=== PATIENT | male | born 1975 | race Caucasian/White ===

== ENCOUNTER 2016-09-28 13:30 | Emergency (ER) ==
[2016-09-28 13:31] VITALS: BMI 26.5
[2016-09-28 13:46] VITALS: BP 142/103; TEMP 97.8
[2016-09-28] MEDS ORDERED: NORCO 10-325 PO STA (14:24)
[2016-09-28 14:50] LABS: COCAIN SCREEN,URINE NEGATIVE (NEGATIVE)
--- NOTE | 2016-09-28 15:07 | ED.PDOC ---
General ED Provider: Dr. ALFREDO CASTILLO Chief Complaint: Shoulder Pain/Injury Stated Complaint: right shoulder pain Time Seen by Physician: 13:33 Mode of Arrival: Walk-In Information Source: Patient Exam Limitations: No limitations Primary Care Provider: CELINA SERNA Nursing and Triage Documentation Reviewed and Agree: Yes Musculoskeletal Complaint Exam - Shoulder Pain Complaint/Exam Mechanism of Injury: Reports: Trauma (shoveling for the city sudden pain with shoulder movements only) Onset/Duration: 2 hrs ago Timing: Constant Initial Severity: Moderate Current Severity: Mild Location: Reports: Discrete (right shoulder ) Character: Reports: Aching, Spasmodic Alleviating: Reports: Rest Aggravating: Reports: Movement, Lifting, Flexion, Extension, Internal rotation, External rotation, Abduction Associated Signs and Symptoms: Denies: Swelling, Redness, Bruising, Fever, Weakness, Numbness, Tingling Non-Orthopedic Risk Factors: Reports: None DVT Risk Factors: Reports: None Septic Arthritis Risk Factors: Reports: None Related Surgical History: Reports: None Tenderness: Present: AC joint, Proximal humerus Limited Range of Motion: Present: Abduction, Adduction, Flexion, Extension, Internal rotation, External rotation, Rotator cuff muscles, Rotator cuff insertion Differential Diagnoses: Sprain, Strain Review of Systems - Review Of Systems Constitutional: Reports: No symptoms Eyes: Reports: No symptoms Ears, Nose, Mouth, Throat: Reports: No symptoms Respiratory: Reports: No symptoms Cardiac: Reports: No symptoms GI: Reports: No symptoms : Reports: No symptoms Musculoskeletal: Reports: Joint pain (right shoulder ) Skin: Reports: No symptoms Neurological: Reports: No symptoms Endocrine: Reports: No symptoms Hematologic/Lymphatic: Reports: No symptoms All Other Systems: Reviewed and Negative Past Medical History - Past Medical History Endocrine: Reports: None Cardiovascular: Reports: None Respiratory: Reports: None Hematological: Reports: None Gastrointestinal: Reports: None Genitourinary: Reports: Other Neuro/Psych: Reports: Other Musculoskeletal: Reports: None Cancer: Reports: None - Surgical History General Surgical History: Reports: Orthopedic ( RIGHT KNEE, LEFT FOOT ) - Family History Family History: Reports: Unknown - Social History Smoking Status: Never smoker 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) Alcohol Screening: None - Immunizations Tetanus Shot up to Date: Yes (3-4 YEARS) Physical Exam - Physical Exam Appearance: Well-appearing, No pain distress, Well-nourished Eyes: HILDA, EOMI, Conjunctiva clear ENT: Ears normal, Nose normal, Oropharynx normal Respiratory: Airway patent, Breath sounds clear, Breath sounds equal, Respirations nonlabored Cardiovascular: RRR, Pulses normal, No rub, No murmur GI/: Soft, Nontender, No masses, Bowel sounds normal, No Organomegaly Musculoskeletal: Limited ROM (right shoulder ) Skin: Warm, Dry, Normal color Neurological: Sensation intact, Motor intact, Reflexes intact, Cranial nerves intact, Alert, Oriented Psychiatric: Affect appropriate, Mood appropriate Critical Care Note - Critical Care Note Total Time (mins): 0 Course - Course Orders, Labs, Meds: Lab Review 09/28/16 14:25 Urine Opiates Screen Positive Ur Oxycodone Screen Negative Urine Methadone Screen Negative Ur Propoxyphene Screen Negative Ur Barbiturates Screen Negative U Tricyclic Antidepress Negative Ur Phencyclidine Scrn Negative Ur Amphetamine Screen Negative U Methamphetamines Scrn Negative U Benzodiazepines Scrn Negative Urine Cocaine Screen Negative U Cannabinoids Screen Negative Orders Category Date Time Status DRUG SCREEN (RAPID FOR ED) [DRUG SCREEN, URINE, RAPID] LAB 09/28/16 14:25 Completed Stat Hydrocodone Bit/Acetaminophen [[place] 10-325] MEDS 09/28/16 14:24 Discontinued 1 tab PO ONCE STA SHOULDER, RIGHT MIN 2V Stat RADS 09/28/16 14:25 Ordered Medications Discontinued Medications Generic Name Dose Route Start Last Admin Trade Name Freq PRN Reason Stop Dose Admin Acetaminophen/Hydrocodone Bitart 1 tab 09/28/16 14:24 09/28/16 14:50 [place] 10-325 PO 09/28/16 14:25 1 tab ONCE STA Administration Vital Signs: Temp Pulse Resp BP Pulse Ox 09/28/16 13:31 97.8 F 71 20 142/103 H 97 Departure - Departure Time of Disposition: 15:07 Disposition: HOME SELF-CARE Discharge Problem: Shoulder pain Rotator cuff dysfunction Qualifiers: Laterality: right Qualifier Code: (M67.911) Unspecified disorder of synovium and tendon, right shoulder Instructions: Rotator Cuff Injury (ED) Condition: Good Pt referred to PMD for follow-up: Yes Additional Instructions: Please call your Family Physician as soon as possible to schedule a follow-up appointment. Allergies/Adverse Reactions: Allergies No Known Allergies Allergy (Verified 09/28/16 13:39) Home Medications: Ambulatory Orders Loratadine [Claritin] 10 mg PO DAILY PRN #30 capsule 09/23/15 Hydrocodone/Acetaminophen [[place] 10-325 Tablet] 1 each PO Q4HR PRN 09/28/16 Meloxicam [Mobic] 15 mg PO DAILY 09/28/16
--- NOTE | 2016-09-28 15:08 | DI ---
EXAM: Right shoulder three views HISTORY: Pain COMPARISON: None TECHNIQUE: Three views right shoulder were performed FINDINGS: No dislocation. Top normal acromioclavicular joint distance unchanged from radiograph ch est on 01/30/2013. Glenohumeral joint space maintained. Ossific or calcific density projects about the inferior aspect glenohumeral joint. This probably represents a loose body, osteophyte, or calc ific tendonitis, though small avulsion fracture not entirely excluded. Small nonspecific lucency pro ximal diaphysis of the humerus, appears well marginated. IMPRESSION: 1. Ossific or calcific density projects about the inferior aspect glenohumeral joint. This probably represents a loose body, osteophyte, or calcific tendonitis, though small avulsion fracture not ent irely excluded. Finding can be correlated with CT. 2. Small nonspecific lucency proximal diaphysis of the humerus, appears well marginated. Report faxed at time of dictation.
== END 2016-09-28 15:26 | disposition home or self-care (01) ==
LOC: ED 13:30
DX: M67.911 Unspecified disorder of synovium and tendon, right shoulder (principal); X50.1XXA Overexertion from prolonged static or awkward postures, initial encounter; Y99.0 Civilian activity done for income or pay
CPT/HCPCS: 80306; 99283

== ENCOUNTER 2017-09-26 16:38 | Inpatient (IN) ==
[2017-09-26] MEDS ORDERED: DILAUDID 0.5 MG/0.5 ML SYRINGE IVP STA ×2 (17:58→18:52)
[2017-09-26] MEDS ORDERED: LIDOCAINE HCL 1% SDV SUBCUT STA (17:59)
--- NOTE | 2017-09-26 18:00 | ED.PDOC ---
General ED Provider: Dr. COOPER PITTMAN Chief Complaint: Wound Check Stated Complaint: Severe pain in Rt Upper extremity. Multiple sites of abscess like lesions on Rt Upper extremities/. Red Streak moving up arm. Elbow abscess for 1 wk Mode of Arrival: Walk-In Information Source: Patient Primary Care Provider: CELINA SERNA Nursing and Triage Documentation Reviewed and Agree: Yes Does patient meet sepsis criteria?: No System Inflammatory Response Syndrome: Not Applicable Sepsis Protocol: For patient's 13 years and over: Temp is 96.8 and below OR 101 and greater Pulse >90 BPM Resp >20/minute Acutely Altered Mental Status Are patient's symptoms suggestive of a new infection, such as: -Pneumonia -Skin, Soft Tissue -Endocarditis -UTI -Bone, Joint Infection -Implantable Device -Acute Abdominal Infection -Wound Infection -Meningitis -Blood Stream Catheter Infection -Unknown Skin Complaint Exam - Skin/Soft Tissue Complaint/Exam Symptoms Are: Worse Timing: Constant Initial Severity: Moderate Current Severity: Severe Location: Rt arm, elbow and forearm Character: Reports: Redness, Swelling, Raised, Painful Aggravating: Reports: Touch Alleviating: Reports: None Associated Signs and Symptoms: Reports: Tenderness, Red streaks Related History: Denies: Similar episode Related Surgical History: Reports: None Recent Exposure to Others w/Similar Symptoms: No Skin Findings: Present: Erythema, Induration, Lymphangitic streaking, Pustules Joint Tenderness Present: No Differential Diagnoses: Cellulitis, Lymphadenitis, Lymphangitis, MRSA Past Medical History - Past Medical History Endocrine: Reports: None Cardiovascular: Reports: None Respiratory: Reports: None Hematological: Reports: None Gastrointestinal: Reports: None Genitourinary: Reports: Other Neuro/Psych: Reports: Other Musculoskeletal: Reports: None Cancer: Reports: None - Surgical History General Surgical History: Reports: Orthopedic ( RIGHT KNEE, LEFT FOOT ) - Family History Family History: Reports: Unknown - Social History Smoking Status: Never smoker 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) Alcohol Screening: None - Immunizations Tetanus Shot up to Date: Yes Physical Exam - Physical Exam Appearance: Well-appearing Ill-appearing: Mild Pain Distress: Moderate Eyes: HILDA, EOMI, Conjunctiva clear ENT: Ears normal, Nose normal, Oropharynx normal Respiratory: Airway patent, Breath sounds clear, Breath sounds equal, Respirations nonlabored Cardiovascular: RRR, Pulses normal, No rub, No murmur GI/: Soft, Nontender, No masses, Bowel sounds normal, No Organomegaly Musculoskeletal: Normal strength, ROM intact, No edema, No calf tenderness Skin: Warm, Dry, Normal color (Erythrema Rt forearm-elbow with lymphangitis extending rt arm to proximal aspect) Neurological: Sensation intact, Motor intact, Reflexes intact, Cranial nerves intact, Alert, Oriented Psychiatric: Affect appropriate, Mood appropriate Critical Care Note - Critical Care Note Total Time (mins): 0 Course - Course Hematology/Chemistry: 09/26/17 18:01 09/26/17 18:01 Orders, Labs, Meds: Lab Review 09/26/17 09/26/17 18:01 18:01 WBC 8.09 RBC 4.09 L Hgb 12.8 L Hct 37.0 L MCV 90.5 MCH 31.3 H MCHC 34.6 RDW Coeff of Suly 11.9 Plt Count 302 Immature Gran % (Auto) 0.4 Neut % (Auto) 71.7 Lymph % (Auto) 18.3 [place] % (Auto) 6.9 Eos % (Auto) 2.0 Baso % (Auto) 0.7 Immature Gran # (Auto) 0.0 Neut # (Auto) 5.8 Lymph # (Auto) 1.5 [place] # (Auto) 0.6 Eos # (Auto) 0.2 Baso # (Auto) 0.1 Sodium 140 Potassium 4.2 Chloride 106 Carbon Dioxide 25 Anion Gap 13.2 BUN 9 Creatinine 0.86 Estimated GFR (MDRD) 98.00 BUN/Creatinine Ratio 10.46 Glucose 89 Calcium 9.4 Total Bilirubin 0.3 AST 21 ALT 18 Alkaline Phosphatase 56 Total Protein 7.3 Albumin 3.8 Globulin 3.5 Albumin/Globulin Ratio 1.09 Orders Category Date Time Status ACTIVITY .Up ad Shawna CARE 09/26/17 19:23 Active INCISION/WOUND CARE Q12HR CARE 09/26/17 19:23 Active INTAKE & OUTPUT Q8HR CARE 09/26/17 19:23 Active PHARMACIST CONSULT ONCE CARE 09/26/17 19:32 Active VITAL SIGNS Q4HR CARE 09/26/17 19:23 Active REGULAR DIET DIETARY 09/26/17 Breakfast Ordered BLOOD CULTURE (ED ONLY) Stat LAB 09/26/17 18:01 Received CBC W/ AUTO DIFF DAILY@0600 LAB 09/27/17 06:00 Ordered CBC W/ AUTO DIFF DAILY@0600 LAB 09/28/17 06:00 Ordered CBC W/ AUTO DIFF Stat LAB 09/26/17 18:01 Completed CMP [COMPREHENSIVE METABOLIC PANEL] Stat LAB 09/26/17 18:01 Completed COMPREHENSIVE METABOLIC PANEL DAILY@0600 LAB 09/27/17 06:00 Ordered COMPREHENSIVE METABOLIC PANEL DAILY@0600 LAB 09/28/17 06:00 Ordered CULTURE WOUND [WOUND CULTURE] Stat LAB 09/26/17 18:50 Received VANCOMYCIN,TROUGH DAILY@0600 LAB 09/27/17 06:00 Ordered VANCOMYCIN,TROUGH DAILY@0600 LAB 09/28/17 06:00 Ordered VANCOMYCIN,TROUGH Timed LAB 09/26/17 18:15 Received Clindamycin Phosphate Inj [Cleocin] 600 mg MEDS 09/26/17 19:30 Ordered 0.9 % Sodium Chloride [Sodium Chloride] 50 ml IV Q8HR Dexamethasone 4 mg/ml Inj [Decadron 4 mg/ml Sdv] MEDS 09/26/17 19:21 Discontinued 4 mg IVP ONCE STA Hydromorphone HCl [Dilaudid 0.5 mg/0.5 ml Syringe] MEDS 09/26/17 17:58 Discontinued 0.5 mg IVP ONCE STA Hydromorphone HCl [Dilaudid 0.5 mg/0.5 ml Syringe] MEDS 09/26/17 18:52 Discontinued 1 mg IVP ONCE STA Lidocaine HCl/Pf [Lidocaine HCl 1% Sdv] MEDS 09/26/17 17:59 Discontinued 5 ml SUBCUT ONCE STA Mupirocin [Bactroban Ointment 1 Gram Applicator (ER)] MEDS 09/26/17 19:09 Discontinued 1 gm .ROUTE .STK-MED ONE Mupirocin [Bactroban Ointment 1 Gram Applicator (ER)] MEDS 09/26/17 19:07 Discontinued 1 gm TP ONCE STA Ondansetron HCl/Pf [Zofran 4 mg/2 ml] MEDS 09/26/17 19:23 Ordered 4 mg IVP Q6H PRN Oxycodone-Acetaminophen 10-325 [Percocet 10-325] MEDS 09/26/17 19:35 Discontinued 1 tab PO ONCE STA Sodium Chloride 0.9% [Sodium Chloride] 1,000 ml MEDS 09/26/17 19:30 Ordered IV 125 mls/hr Vancomycin HCl [Vancomycin] 1 gm MEDS 09/26/17 19:08 Active 0.9 % Sodium Chloride [Sodium Chloride] 250 ml IV ONCE RESUSCITATION STATUS Routine OTHERS 09/26/17 19:23 Ordered Medications Generic Name Dose Route Start Last Admin Trade Name Sascha PRN Reason Stop Dose Admin Vancomycin HCl 1 gm/ Sodium 250 mls @ 250 mls/hr 09/26/17 19:08 09/26/17 19: 26 Chloride IV 09/26/17 20:07 250 mls/hr ONCE STA Administration Clindamycin Phosphate 600 mg/ 54 mls @ 50 mls/hr 09/26/17 19:30 Sodium Chloride IV Q8HR LEONARDO Sodium Chloride 1,000 mls @ 125 mls/hr 09/26/17 19:30 Sodium Chloride IV .Q8H LEONARDO Ondansetron HCl 4 mg 09/26/17 19:23 Zofran 4 Mg/2 Ml IVP Q6H PRN nausea and vomiting Discontinued Medications Generic Name Dose Route Start Last Admin Trade Name Sascha PRN Reason Stop Dose Admin Dexamethasone Sodium Phosphate 4 mg 09/26/17 19:21 09/26/17 19:27 Decadron 4 Mg/Ml Sdv IVP 09/26/17 19:22 4 mg ONCE STA Administration Hydromorphone HCl 0.5 mg 09/26/17 17:58 09/26/17 18:06 Dilaudid 0.5 Mg/0.5 Ml Syringe IVP 09/26/17 17:59 0.5 mg ONCE STA Administration Hydromorphone HCl 1 mg 09/26/17 18:52 09/26/17 18:56 Dilaudid 0.5 Mg/0.5 Ml Syringe IVP 09/26/17 18:53 1 mg ONCE STA Administration Lidocaine HCl 5 ml 09/26/17 17:59 09/26/17 18:46 Lidocaine Hcl 1% Sdv SUBCUT 09/26/17 18:00 5 ml ONCE STA Administration Mupirocin 1 gm 09/26/17 19:07 09/26/17 19:25 Bactroban Ointment 1 Gram Applicator (Er) TP 09/26/17 19:08 1 gm ONCE STA Administration Oxycodone/Acetaminophen 1 tab 09/26/17 19:35 Percocet 10-325 PO 09/26/17 19:36 ONCE STA Vital Signs: Temp Pulse Resp BP Pulse Ox 08/19/18 16:39 99.9 F H 97 H 20 156/103 H 96 Departure - Departure Allergies/Adverse Reactions: Allergies No Known Allergies Allergy (Verified 09/26/17 16:46) Home Medications: Ambulatory Orders Loratadine [Claritin] 10 mg PO DAILY PRN #30 capsule 09/23/15 Hydrocodone/Acetaminophen [[place] 10-325 Tablet] 1 each PO Q4HR PRN 09/28/16 Meloxicam [Mobic] 15 mg PO DAILY 09/28/16 Lisinopril [Zestril] 40 mg PO DAILY 09/26/17
[2017-09-26] MEDS ORDERED: BACTROBAN OINTMENT 1 GRAM APPLICATOR (ER) TP STA (19:07)
[2017-09-26] MEDS ORDERED: VANCOMYCIN 1 GM in SODIUM CHLORIDE 250 ML IV STA (19:08)
[2017-09-26] MEDS ORDERED: BACTROBAN OINTMENT 1 GRAM APPLICATOR (ER) ONE (19:09)
[2017-09-26] MEDS ORDERED: DECADRON 4 MG/ML SDV IVP STA (19:21)
[2017-09-26] MEDS ORDERED: ZOFRAN 4 MG/2 ML IVP PRN (19:23)
[2017-09-26] MEDS ORDERED: PERCOCET 10-325 PO STA (19:35)
[2017-09-26 20:42] VITALS: BMI 27.5
[2017-09-26] MEDS ORDERED: CLEOCIN ONE (20:50)
[2017-09-26] MEDS: CLEOCIN 600 MG in SODIUM CHLORIDE 50 ML IV SCH ×2 (20:57→21:03)
[2017-09-26] MEDS: SODIUM CHLORIDE 1,000 ML IV SCH (20:58)
[2017-09-26] MEDS ORDERED: NORCO 10-325 PO PRN (21:32)
[2017-09-26] MEDS: ZESTRIL PO SCH (21:32)
[2017-09-27] MEDS: NORCO 10-325 PO PRN ×5 (02:02→21:21)
[2017-09-27] MEDS ORDERED: CLEOCIN ONE (03:58)
[2017-09-27] MEDS: CLEOCIN 600 MG in SODIUM CHLORIDE 50 ML IV SCH ×3 (05:31→20:19)
[2017-09-27] MEDS: MOBIC PO SCH (08:27)
[2017-09-27] MEDS ORDERED: NON-FORMULARY MEDICATION (Meloxicam [Mobic] 15 MG) PO SCH (09:00)
[2017-09-27] MEDS: BACTROBAN OINTMENT 1 GRAM APPLICATOR (ER) TP SCH ×2 (09:55→20:20)
[2017-09-27] MEDS: SODIUM CHLORIDE 1,000 ML IV SCH ×3 (09:55→19:59)
--- NOTE | 2017-09-27 10:31 | PCM.PROG ---
Attending Provider: ATTENDING PROVIDER[facility] This patient is seen with Marizol Che, Nurse Practitioner. DATE OF SERVICE: 09/27/17 SUBJECTIVE: This 42 year old WHITE/ M was hospitalized 09/26/17. The patient is lying in bed, alert. He is resting comfortably. He has been receiving [place]. Wounds right arm, one draining. REVIEW OF SYSTEMS: CONSTITUTIONAL: No night sweats. No fatigue, malaise, lethargy. No fever or chills. HEENT: Eyes: No visual changes. No eye pain. No eye discharge. ENT: No runny nose. No epistaxis. No sinus pain. No odynophagia. No congestion. RESPIRATORY: No cough, no congestion. No hemoptysis. No shortness of breath. CARDIOVASCULAR: No angina symptoms. No CHF symptoms. No atypical chest pain for CAD. No palpitations. No orthopnea.. GASTROINTESTINAL: No abdominal pain. No nausea or vomiting. No diarrhea or constipation. No hematemesis. No hematochezia. GENITOURINARY: No urgency. No frequency. No dysuria. No hematuria. No obstructive symptoms. No discharge. No pain. No significant abnormal bleeding. MUSCULOSKELETAL: No musculoskeletal pain; no joint swelling. NEUROLOGICAL: Awake, alert, oriented to time, place and person. No headache. No neck pain. No syncope. No seizures. No dizziness. PSYCHIATRIC: Not anxious. No depression. No suicidal thoughts. No homicidal thoughts. SKIN: No rash. Wounds on right arm. ENDOCRINE: No unexplained weight loss. No weight gain. HEMATOLOGIC/LYMPHATIC: No anemia. No purpura. No petechiae. No prolonged or excessive bleeding. No palpable lymph nodes. PHYSICAL EXAMINATION: GENERAL: The patient is awake, alert and oriented, lying in bed in no distress. VITAL SIGNS: Temperature 98.0 F, Pulse 58, Respiratory Rate 18, BP 113/69, Pulse Ox 99% HEENT: Head normocephalic, atraumatic. Eyes: Extraocular muscles are intact. Pupils are equal, round and reactive to light and accommodation. Ears: No lesions. Nose appeared normal. Throat: No exudate or erythema. NECK: Supple. No JVD, no carotid bruit. No lymphadenopathy or thyromegaly. LUNGS: Clear to auscultation. Percussion note normal. Chest symmetrical. HEART: S1, S2, no S3. No murmurs. No cyanosis or clubbing. No ascites. Pulses: Dorsalis pedis and posterior tibial pulses +1 to +2 both sides. ABDOMEN: Soft. Non-tender. Bowel sounds active. No CVA tenderness. No mass felt. EXTREMITIES: Right arm, four lesions, one draining, very tender, purulent drainage. No edema. Full range of motion of all extremities, equal. NEUROLOGIC: No focal deficit. Cranial nerves II through XII are grossly intact. No headache, no double vision or headache. SKIN: Warm and dry. Intact. Turgor-normal. LYMPHATIC: No palpable lymph nodes/no lymphedema. MUSCULOSKELETAL: Normal joints with no swelling. Muscle tone is normal. LAB REVIEW: 09/27/17 04:06 09/27/17 04:06 09/27/17 04:06: Sodium 137, Potassium 4.8, Chloride 106, Carbon Dioxide 23, Anion Gap 12.8, BUN 11, Creatinine 0.82, Estimated GFR (MDRD) 103.00, BUN/ Creatinine Ratio 13.41, Glucose 128 H, Calcium 9.3, Total Bilirubin 0.9, AST 18 , ALT 16, Alkaline Phosphatase 54, Total Protein 6.9, Albumin 3.6, Globulin 3.3 , Albumin/Globulin Ratio 1.09 09/27/17 04:06: WBC 6.83, RBC 4.16 L, Hgb 13.2 L, Hct 38.2 L, MCV 91.8, MCH 31.7 H, MCHC 34.6, RDW Coeff of Suly 11.9, Plt Count 304, Immature Gran % (Auto) 0.4, Neut % (Auto) 84.9, Lymph % (Auto) 8.8 L, [place] % (Auto) 5.6, Eos % (Auto) 0.0, Baso % (Auto) 0.3, Immature Gran # (Auto) 0.0, Neut # (Auto) 5.8, Lymph # ( Auto) 0.6, [place] # (Auto) 0.4, Eos # (Auto) 0.0, Baso # (Auto) 0.0 09/27/17 04:06: Vancomycin Trough 2.50 L 09/26/17 18:15: Vancomycin Trough < 0.42 L 09/26/17 18:01: Sodium 140, Potassium 4.2, Chloride 106, Carbon Dioxide 25, Anion Gap 13.2, BUN 9, Creatinine 0.86, Estimated GFR (MDRD) 98.00, BUN/ Creatinine Ratio 10.46, Glucose 89, Calcium 9.4, Total Bilirubin 0.3, AST 21, ALT 18, Alkaline Phosphatase 56, Total Protein 7.3, Albumin 3.8, Globulin 3.5, Albumin/Globulin Ratio 1.09 09/26/17 18:01: WBC 8.09, RBC 4.09 L, Hgb 12.8 L, Hct 37.0 L, MCV 90.5, MCH 31.3 H, MCHC 34.6, RDW Coeff of Suly 11.9, Plt Count 302, Immature Gran % (Auto) 0.4, Neut % (Auto) 71.7, Lymph % (Auto) 18.3, [place] % (Auto) 6.9, Eos % (Auto) 2.0, Baso % (Auto) 0.7, Immature Gran # (Auto) 0.0, Neut # (Auto) 5.8, Lymph # ( Auto) 1.5, [place] # (Auto) 0.6, Eos # (Auto) 0.2, Baso # (Auto) 0.1 ASSESSMENT: 1. Multiple abscesses with acute cellulitis 2. 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 Back saleem, chronic PLAN: 1. Consult with Dr. Stephen 2. Warm compresses to all t.i.d. 10 to 20 min 3. Nasal Bactroban to nose twice a day 4. Continue Clindamycin Plan and coordination of the patient's care discussed in the presence of Restaurant Server and nurse. CONDITION: Stable SCRIBED BY: KRIS CARLISLE Data Base Administrator scribed while in presence of service performed by Dr. Fontana/Marizol Che APRN on 09/27/17 ([id number])
[2017-09-27] MEDS: ZESTRIL PO SCH (20:44)
[2017-09-28] MEDS: CLEOCIN 600 MG in SODIUM CHLORIDE 50 ML IV SCH ×3 (04:53→20:47)
[2017-09-28] MEDS: SODIUM CHLORIDE 1,000 ML IV SCH (04:54)
[2017-09-28] MEDS: NORCO 10-325 PO PRN ×5 (05:33→23:07)
[2017-09-28] MEDS: MOBIC PO SCH (08:47)
[2017-09-28] MEDS: BACTROBAN OINTMENT 1 GRAM APPLICATOR (ER) TP SCH ×2 (08:48→20:47)
--- NOTE | 2017-09-28 09:02 | PCM.PROG ---
Attending Provider: ATTENDING PROVIDER[facility] DATE OF SERV[facility]: 09/[facility]/17 SUBJECTIVE: This 42 year old WHITE/ M was hospitalized 09/26/17 with cellulitis of the right upper extremity. A couple of the wounds have been I & D'd. Cultures grew MRSA sensitive to Clindamycin and Sulfa as well as other antibiotics. The patient is on antibiotics and will continue to be followed by Dr. Stephen. No red streaks noted and cellulitis is resolving. REVIEW OF SYSTEMS: CONSTITUTIONAL: No night sweats. No fatigue, malaise, lethargy. No fever or chills. HEENT: Eyes: No visual changes. No eye pain. No eye discharge. ENT: No runny nose. No epistaxis. No sinus pain. No odynophagia. No congestion. RESPIRATORY: No cough, no congestion. No hemoptysis. No shortness of breath. CARDIOVASCULAR: No angina symptoms. No CHF symptoms. No atypical chest pain for CAD. No palpitations. No orthopnea.. GASTROINTESTINAL: No abdominal pain. No nausea or vomiting. No diarrhea or constipation. No hematemesis. No hematochezia. GENITOURINARY: No urgency. No frequency. No dysuria. No hematuria. No obstructive symptoms. No discharge. No pain. No significant abnormal bleeding. MUSCULOSKELETAL: No musculoskeletal pain; no joint swelling. NEUROLOGICAL: Awake, alert, oriented to time, place and person. No headache. No neck pain. No syncope. No seizures. No dizziness. PSYCHIATRIC: Not anxious. No depression. No suicidal thoughts. No homicidal thoughts. SKIN: No rash. Wounds to right upper extremity. ENDOCRINE: No unexplained weight loss. No weight gain. HEMATOLOGIC/LYMPHATIC: No anemia. No purpura. No petechiae. No prolonged or excessive bleeding. No palpable lymph nodes. PHYSICAL EXAMINATION: GENERAL: The patient is awake, alert and oriented, lying in bed in no distress. VITAL SIGNS: Temperature 98.0 F, Pulse 57, Respiratory Rate 18, BP 107/69, Pulse Ox 98% HEENT: Head normocephalic, atraumatic. Eyes: Extraocular muscles are intact. Pupils are equal, round and reactive to light and accommodation. Ears: No lesions. Nose appeared normal. Throat: No exudate or erythema. NECK: Supple. No JVD, no carotid bruit. No lymphadenopathy or thyromegaly. LUNGS: Clear to auscultation. Percussion note normal. Chest symmetrical. HEART: S1, S2, no S3. No murmurs. No cyanosis or clubbing. No ascites. Pulses: Dorsalis pedis and posterior tibial pulses +1 to +2 both sides. ABDOMEN: Soft. Non-tender. Bowel sounds active. No CVA tenderness. No mass felt. EXTREMITIES: Right upper extremity resolving cellulitis. Four lesions to right upper extremity. No edema. Full range of motion of all extremities, equal. NEUROLOGIC: No focal deficit. Cranial nerves II through XII are grossly intact. No headache, no double vision or headache. SKIN: Warm and dry. Intact. Turgor-normal. LYMPHATIC: No palpable lymph nodes/no lymphedema. MUSCULOSKELETAL: Normal joints with no swelling. Muscle tone is normal. LAB REVIEW: 09/28/17 05:15 09/28/17 05:15 09/28/17 05:15: Sodium 140, Potassium 4.3, Chloride 110 H, Carbon Dioxide 24, Anion Gap 10.3, BUN 10, Creatinine 0.79, Estimated GFR (MDRD) 108.00, BUN/ Creatinine Ratio 12.65, Glucose 87, Calcium 8.3, Total Bilirubin 0.3, AST 13 L, ALT 14, Alkaline Phosphatase 42 L, Total Protein 5.7 L, Albumin 2.9 L, Globulin 2.8, Albumin/Globulin Ratio 1.04 09/28/17 05:15: WBC 5.24, RBC 3.53 L, Hgb 11.3 L, Hct 33.5 L, MCV 94.9 H, MCH 32.0 H, MCHC 33.7, RDW Coeff of Suly 12.4, Plt Count 244, Immature Gran % (Auto) 0.4, Neut % (Auto) 41.5, Lymph % (Auto) 46.0, [place] % (Auto) 9.0, Eos % (Auto) 2.5, Baso % (Auto) 0.6, Immature Gran # (Auto) 0.0, Neut # (Auto) 2.2, Lymph # ( Auto) 2.4, [place] # (Auto) 0.5, Eos # (Auto) 0.1, Baso # (Auto) 0.0 09/28/17 05:15: Vancomycin Trough < 0.42 L ASSESSMENT: 1. Multiple abscesses, two cultured positive for MRSA, with resolving cellulitis. 2. 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 3. Chronic back pain. PLAN: 1. Continue antibiotics. 2. Dr. Stephen will continue to consult. Plan and coordination of the patient's care discussed in the presence of Balance Wheel Motion Inspector and nurse. CONDITION: Stable SCRIBED BY: KRIS CARLISLE Line Crew Supervisor scribed while in presence of service performed by Dr. [facility]ADRIGAL [facility] on 09/28/17 ([id number])
--- NOTE | 2017-09-28 10:28 | CONS ---
DATE OF CONSULTATION: 09/27/17 REASON FOR CONSULTATION/HISTORY OF PRESENT ILLNESS: 42-year-old male is seen because of swelling and redness with a pustular area on the right forearm proximal. There are other areas times three that have small abscesses. The larger area had been incised and drained in the emergency room and culture was obtained. It is gram positive cocci but no JO ANN. It probably is a Staphylococcus. The patient is receiving Clindamycin now and was initially given also Vancomycin in the emergency room. The patient had applied Bactroban, that was a prescription of his . He presented to the emergency room because of the increasing pain. On examination, the patient is alert, oriented times four, not dyspneic or tachypneic. The pain is somewhat less but still receiving a significant narcotic for pain control. Vital signs on examination this afternoon at 2 o'clock showed a temperature of 98.3, pulse 75, blood pressure 110/63, respiratory rate 20, oxygen saturation 99 % on room air. The patient does chew tobacco. The mouth was inspected after he cleaned his mouth with tobacco that he was chewing. He does put his tobacco on the right buccal mucosa and the mucosa is markedly thick and white. There are no ulcerations. No other areas of leukoplakia except at the area where he had the tobacco. The right arm is swollen and tender. It is not tight. He had been putting a warm dressing but not a moist warm dressing. I told them to continue the dressing through the day and put the dry dressing during the night and no heating pad. The packing will probably be removed tomorrow and see if there is any further enlarging the incision and drainage. The three other areas are smaller and probably would not need any incision and drainage at all. ASSESSMENT: 1. ABSCESS, MULTIPLE RIGHT FOREARM AND ARM AND POSTERIOR ELBOW, PROBABLY SECONDARY TO STAPH AUREUS, GRAM POSITIVE COCCI, NO ID OR JO ANN AT THIS TIME. RECOMMENDATIONS: 1. NO CHANGES IN THE ANTIBIOTIC UNTIL WE GET THE ID AND JO ANN AND SENSITIVITY. 2. THE PATIENT ADVISED ABOUT THE ABNORMAL MUCOSAL FINDING AND THAT LEUKOPLAKIA IS PRE CANCEROUS AND THAT HE SHOULD PROBABLY STOP CHEWING TOBACCO. HE PRONOUNCED THERE AT THAT TIME THAT HE WOULD STOP THE HABIT. I TOLD HIM THAT HE NEEDS TO BE SEEN AGAIN IN TWO MONTHS TO SEE IF IT HAS RETURNED OR HAS IMPROVED OTHERWISE HE WOULD NEED A BIOPSY. HE SHOULD DISCUSS THAT WITH HIS FAMILY PHYSICIAN. Thank you for allowing me to participate in his care. Sincerely yours, Dhaval Stephen M.D. ANABELL
--- NOTE | 2017-09-28 11:22 | HP ---
DATE OF SERVICE: 09/27/17 (ADMIT DATE 09/26/17) HISTORY OF PRESENT ILLNESS: This is a 42-year-old white male who presented to the emergency room by himself complaining of severe pain in the right arm. There is a family history of MRSA in his household. He stated that he had an abscess on the right arm but now he has red streaks moving from this lesion that has been present times one week. PAST MEDICAL HISTORY: History of substance abuse and recovery Hypertension Osteoarthritis Chronic back pain PAST SURGICAL HISTORY: Orthopedic surgery of the right knee and left foot. REVIEW OF SYSTEMS: CONSTITUTIONAL: No night sweats. No fatigue, malaise, lethargy. No fever or chills. HEENT: Eyes: No visual changes. No eye pain. No eye discharge. ENT: No runny nose. No epistaxis. No sinus pain. No sore throat. No odynophagia. No ear pain. No congestion. RESPIRATORY: No cough, no congestion. No hemoptysis. No shortness of breath. CARDIOVASCULAR: No angina symptoms. No CHF symptoms. No atypical chest pain for CAD. No palpitations. No PND. No orthopnea. GASTROINTESTINAL: No abdominal pain. No nausea or vomiting. No diarrhea or constipation. No hematemesis. No hematochezia. GENITOURINARY: No urgency. No frequency. No dysuria. No hematuria. No obstructive symptoms. No discharge. No pain. No significant abnormal bleeding. MUSCULOSKELETAL: No musculoskeletal pain. No joint swelling. No arthritis. NEUROLOGICAL: No headache. No neck pain. No syncope. No seizures. No dizziness. PSYCHIATRIC: Not anxious. No depression. No suicidal thoughts. No homicidal thoughts. SKIN: Positive for redness, swelling, four painful lesions on the lateral aspect of the right forearm from the elbow down to the wrist otherwise is normal. ENDOCRINE: No unexplained weight loss. No weight gain. HEMATOLOGIC/LYMPHATIC: No anemia. No purpura. No petechiae. No prolonged or excessive bleeding. No palpable lymph nodes. PERSONAL/FAMILY/SOCIAL HISTORY: Nonsmoker. He has a history of substance abuse. No alcohol or illicit drug use at this time. He is , lives at home with his and children. MEDICATIONS: (HOME) Claritin 10 mg p.o. daily p.r.n. Mobic 15 mg p.o. daily Hydrocodone/Acetaminophen one each p.o. q.4hr p.r.n. Zestril 40 mg p.o. bedtime ALLERGIES: NKDA PHYSICAL EXAMINATION: VITAL SIGNS: Temperature 99.9, heart rate 97, respirations 20, BP 156/103, pulse ox 96% on room air. HEENT: Head normocephalic, atraumatic. Eyes: Extraocular muscles are intact. Pupils are equal, round and reactive to light and accommodation. Ears: No lesions. Nose appeared normal. Throat: No exudate or erythema. NECK: Supple. No JVD, no carotid bruit. No lymphadenopathy or thyromegaly. LUNGS: Clear to auscultation. Percussion note normal. Chest symmetrical. HEART: S1, S2, no S3. No murmurs. No cyanosis or clubbing. No ascites. Pulses: Dorsalis pedis and posterior tibial pulses +1 to +2 bilaterally. ABDOMEN: Soft. Nontender. Bowel sounds active. No CVA tenderness. No mass felt. EXTREMITIES: Quarter sized area of induration lateral aspect of right forearm which was incised and drained with purulent drainage in the emergency room which is now packed. He has three other, less than 1 cm, lesions with induration that are slightly red in the same area with purulent drainage. Generalized erythema and heat. Area has mild swelling, tender otherwise normal. No edema. Full range of motion of all extremities, equal. NEUROLOGIC: No focal deficit. Cranial nerves II through XII are grossly intact. No headache, no double vision or headache. SKIN: Warm and dry. Intact. Turgor - normal. LYMPHATIC: No palpable lymph nodes/no lymphedema. MUSCULOSKELETAL: Normal joints with no swelling. Muscle tone is normal. LABS: White count 8.09, hemoglobin 12.8, hematocrit 37, platelets 302. Sodium 140, potassium 4.2, BUN 9, creatinine 0.96, glucose 89. Blood culture and wound culture pending. ASSESSMENT: 1. Multiple abscesses, right arm with surrounding cellulitis 2. Hypertension 3. 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 Routine telemetry orders 2. Admit to the floor 3. Start on Clindamycin 600 mg IV q.8hr 4. CBC, CMP daily 5. Wound culture 6. Blood culture 7. Continue [place] as a home medication as well as other home medications for pain 8. NS at 75 cc/hr 9. Zofran q.6hr p.r.n. for nausea, 4 mg IV 10. Warm compresses to the area for 10 to 20 minutes three times a day 11. Apply Bactroban to the open areas 12. Consult Dr. Stephen 13. Will follow closely TIME SPENT: More than 70 minutes. MTDD
[2017-09-28] MEDS: ZESTRIL PO SCH (20:47)
[2017-09-29] MEDS: CLEOCIN 600 MG in SODIUM CHLORIDE 50 ML IV SCH (05:53)
[2017-09-29] MEDS: NORCO 10-325 PO PRN ×3 (05:53→14:38)
[2017-09-29] MEDS ORDERED: NORCO 10-325 PO PRN (08:31)
[2017-09-29] MEDS: MOBIC PO SCH (08:51)
[2017-09-29] MEDS: BACTROBAN OINTMENT 1 GRAM APPLICATOR (ER) TP SCH (08:52)
--- NOTE | 2017-09-29 08:53 | PCM.PROG ---
Attending Provider: ATTENDING PROVIDER[facility] patient is seen with Marizol Che, Nurse Practitioner. DATE OF SERVICE: 09/29/17 SUBJECTIVE: This 42 year old WHITE/ M was hospitalized 09/26/17. Lying in bed, alert. Dr. Stephen lanced lesion again on right forearm and packed last night. He is still complaining of pain. Other lesions seem to be resolving. REVIEW OF SYSTEMS: CONSTITUTIONAL: No night sweats. No fatigue, malaise, lethargy. No fever or chills. HEENT: Eyes: No visual changes. No eye pain. No eye discharge. ENT: No runny nose. No epistaxis. No sinus pain. No odynophagia. No congestion. RESPIRATORY: No cough, no congestion. No hemoptysis. No shortness of breath. CARDIOVASCULAR: No angina symptoms. No CHF symptoms. No atypical chest pain for CAD. No palpitations. No orthopnea.. GASTROINTESTINAL: No abdominal pain. No nausea or vomiting. No diarrhea or constipation. No hematemesis. No hematochezia. GENITOURINARY: No urgency. No frequency. No dysuria. No hematuria. No obstructive symptoms. No discharge. No pain. No significant abnormal bleeding. MUSCULOSKELETAL: No musculoskeletal pain; no joint swelling. NEUROLOGICAL: Awake, alert, oriented to time, place and person. No headache. No neck pain. No syncope. No seizures. No dizziness. PSYCHIATRIC: Not anxious. No depression. No suicidal thoughts. No homicidal thoughts. SKIN: No rash. Multiple abscesses right arm. ENDOCRINE: No unexplained weight loss. No weight gain. HEMATOLOGIC/LYMPHATIC: No anemia. No purpura. No petechiae. No prolonged or excessive bleeding. No palpable lymph nodes. PHYSICAL EXAMINATION: GENERAL: The patient is awake, alert and oriented, lying/sitting in bed in no distress. VITAL SIGNS: Temperature 98.2 F, Pulse 69, Respiratory Rate 16, BP 108/66, Pulse Ox 100% HEENT: Head normocephalic, atraumatic. Eyes: Extraocular muscles are intact. Pupils are equal, round and reactive to light and accommodation. Ears: No lesions. Nose appeared normal. Throat: No exudate or erythema. NECK: Supple. No JVD, no carotid bruit. No lymphadenopathy or thyromegaly. LUNGS: Clear to auscultation. Percussion note normal. Chest symmetrical. HEART: S1, S2, no S3. No murmurs. No cyanosis or clubbing. No ascites. Pulses: Dorsalis pedis and posterior tibial pulses +1 to +2 both sides. ABDOMEN: Soft. Non-tender. Bowel sounds active. No CVA tenderness. No mass felt. EXTREMITIES: Three lesions, packing intact, one still with purulent drainage, other two dry. No edema. Full range of motion of all extremities, equal. NEUROLOGIC: No focal deficit. Cranial nerves II through XII are grossly intact. No headache, no double vision or headache. SKIN: Warm and dry. Intact. Turgor-normal. LYMPHATIC: No palpable lymph nodes/no lymphedema. MUSCULOSKELETAL: Normal joints with no swelling. Muscle tone is normal. LAB REVIEW: 09/28/17 05:15 09/28/17 05:15 ASSESSMENT: 1. Multiple abscesses, two cultured positive for MRSA, with resolving cellulitis. 2. 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 3. Chronic back pain. PLAN: 1. Continue with Dr. Stephen on consult 2. Anticipate d/c tomorrow 3. Continue warm compresses 4. Discussed continuing bleach baths and nasal Bactroban 5. [place] q.6hr Plan and coordination of the patient's care discussed in the presence of Fur Grader and nurse. CONDITION: Stable SCRIBED BY: Eunice CASTILLOist scribed while in presence of service performed by Dr. Fontana/Marizol Che APRN on 09/29/17 ([id number])
--- NOTE | 2017-09-29 09:35 | PN ---
DATE OF SERVICE: 09/27/17 SUBJECTIVE: 42-year-old white male hospitalized with acute cellulitis involving both upper arms. The patient had incision and drainage by ER attending, two places. The patient's cellulitis is much controlled. Continue Clindamycin and Zosyn. The patient was seen and examined with the nurse practitioner. TIME SPENT: More than 30 minutes. Plan and coordination of the patient's care discussed in the presence of nurse. ANABELL
--- NOTE | 2017-09-29 12:57 | PN ---
DATE OF SERVICE: 09/29/17 SUBJECTIVE: The patient was seen and examined with the Nurse Practitioner. The patient is doing well. His lesion on the arm is healing up. Dr. Stephen called me that the patient's condition it stable enough to be discharged and he recommended him to be discharged on Clindamycin and Vancomycin was an option as an outpatient considering the patient's condition and healing up of all the lesions the way it has. We put the patient on Clindamycin 600mg three times a day. The patient is to be seen by Dr. Stephen tomorrow on followup and he is going to followup until the lesions are properly taken care of. The patient is strongly advised to make appointment with Dr. Moore for followup. He signed all the records. CONDITION: Stable. TIME SPENT: More than 30 minutes. Plan and coordination of the patient's care discussed in the presence of nurse. ANABELL
--- NOTE | 2017-09-29 13:02 | PN ---
09/26/17: Level 5 09/27/17: Intermediate 09/28/17: Intermediate 09/29/17: D as in discharge MTDD
[2017-09-29 14:17] VITALS: BP 116/72; TEMP 97.9
--- NOTE | 2017-09-29 14:33 | CM.DICTOOL ---
ADMISSION: 09/26/17 19:36 DISCHARGE: 09/29/17 FINAL DIAGNOSIS ACTUE CELLULITIS RIGHT UPPER EXTREMITY RIGHT ARM WOUNDS X4, S/P I&D X2 OF THE WOUNDS MRSA RIGHT ARM WOUNDS HYPERTENSION ARTHRITIS LAST VITALS Temp Pulse Resp BP Pulse Ox 98.1 F 61 20 113/75 98 09/29/17 10:00 09/29/17 10:00 09/29/17 10:00 09/29/17 10:00 09/29/17 10:00 TAKE THESE MEDICATIONS AT HOME Hydrocodone Bitart/Acetaminophen ([place] 10-325) 1 tab PO Q4H PRN PRN Reason: MODERATE PAIN Last Admin: 09/29/17 10:38 Dose: 1 tab CLINDAMYCIN 300MG PO TID X 10 DAYS Lisinopril (Zestril) 40 mg PO BEDTIME [facility] Last Admin: 09/28/17 20:47 Dose: 40 mg Meloxicam (Mobic) 15 mg PO DAILY [facility] Last Admin: 09/29/17 08:51 Dose: 15 mg Mupirocin (Bactroban Ointment 1 Gram Applicator (Er)) 1 gm TP BID [facility] Last Admin: 09/29/17 08:52 Dose: 1 gm ALLERGIES No Known Allergies Allergy (Verified 09/26/17 16:46) DISCONTINUED MEDICATIONS Dexamethasone Sodium Phosphate (Decadron 4 Mg/Ml Sdv) 4 mg IVP ONCE STA Stop: 09/26/17 19:22 Last Admin: 09/26/17 19:27 Dose: 4 mg Hydromorphone HCl (Dilaudid 0.5 Mg/0.5 Ml Syringe) 0.5 mg IVP ONCE STA Stop: 09/26/17 17:59 Last Admin: 09/26/17 18:06 Dose: 0.5 mg Hydromorphone HCl (Dilaudid 0.5 Mg/0.5 Ml Syringe) 1 mg IVP ONCE STA Stop: 09/26/17 18:53 Last Admin: 09/26/17 18:56 Dose: 1 mg Vancomycin HCl 1 gm/ Sodium (Chloride) 250 mls @ 250 mls/hr IV ONCE STA Stop: 09/26/17 20:07 Last Admin: 09/26/17 19:26 Dose: 250 mls/hr Sodium Chloride (Sodium Chloride) 1,000 mls @ 125 mls/hr IV .Q8H [facility] Last Admin: 09/28/17 04:54 Dose: 125 mls/hr Lidocaine HCl (Lidocaine Hcl 1% Sdv) 5 ml SUBCUT ONCE STA Stop: 09/26/17 18:00 Last Admin: 09/26/17 18:46 Dose: 5 ml Mupirocin (Bactroban Ointment 1 Gram Applicator (Er)) 1 gm TP ONCE STA Stop: 09/26/17 19:08 Last Admin: 09/26/17 19:25 Dose: 1 gm Oxycodone/Acetaminophen (Percocet 10-325) 1 tab PO ONCE STA Stop: 09/26/17 19:36 Last Admin: 09/26/17 20:57 Dose: 1 tab NEW PRESCRIPTIONS: NEW MEDICATIONS: 1. CLINDAMYCIN 300MG TAKE 1 CAPSULE 3 TIMES A DAY FOR 10 DAYS. TAKE UNTIL ALL GONE. SMOKING: N/A DISEASE SPECIFIC EDUCATION: CELLULITIS MRSA INFECTIONS MEDICATIONS IMPORTANCE OF FOLLOW UP APPOINTMENTS WOUND CARE BACTROBAN USE BLEACH BATHS LAB REVIEW: 09/28/17 05:15 09/28/17 05:15 PLAN: DISCHARGE TO HOME TODAY 09/29/17. CONTINUE HOME MEDICATIONS PER NURSING SHEET. NEW MEDICATIONS: 1. CLINDAMYCIN 300MG TAKE 1 CAPSULE 3 TIMES A DAY FOR 10 DAYS. TAKE UNTIL ALL GONE. AT HOME: FAMILY USE BACTROBAN TO [place] AND CONTINUE BLEACH BATHS PER INSTRUCTED. DIET TOLERATED. ACTIVITY TOLERATED. KEEP WOUNDS CLEAN AND DRY. KEEP DRESSINGS ON UNTIL INSTRUCTED PER DR. BENOIT TO REMOVE. FOLLOW UP WITH DR. BENOIT TOMORROW 09/30/17 AT 10AM. HE WILL RE-PACK YOUR WOUND. FOLLOW UP WITH YOUR PRIMARY MD NEXT WEEK. CALL FOR AN APPOINTMENT. PATIENT INSISTS ON MAKING APPOINTMENT HIMSELF. IS A FULL CODE. SITTING UP IN BED. ALERT AND ORIENTED X 4. HAS BEEN OUT WALKING IN [place]. Mirtha STROUD APRN INTO SEE PATIENT. PATIENT STATES STILL HAVING ALOT OF PAIN TO RIGHT ARM. PATIENT STATES DR. BENOIT "CLEANED IT OUT AGAIN LAST NIGHT". PLAN OF CARE DISCUSSED PER Mirtha STROUD APRN. PATIENT VERBALIZES UNDERSTANDING AND AGREEMENT. VITAL SIGNS ARE STABLE. HAS BEEN AFEBRILE. POX 100% ON ROOM AIR. HEAR TONES ARE REGULAR WITH TELEMETRY REVEALING SINUS KIRA. NO C/O PAIN OR DISCOMFORT. LUNGS ARE CLEAR. NO COUGH OR DYSPNEA NOTED. ABDOMEN IS SOFT, NON-TENDER WITH BOWEL SOUNDS POSITIVE IN ALL 4 QUADS. PEDAL PULSES POSITIVE WITHOUT EDEMA. HAS SALINE LOCK IN LEFT HAND SITE IS CLEAR. IS INDEPENDENT WITH ACTIVITIES OF DAILY LIVING. DR. KAYCEE LUCAS SEE PATIENT LAST PM AND RE-LANCED ONE OF THE ABSCESS AREAS. PACKED WOUND WITH IODOFORM, COVERED WITH GAUZE AND WRAPPED WITH COBAN. COPBAN REMOVED PER Mirtha STROUD THIS AM AND WOUND CHECKED WITHOUT REMOVING ALL OF DRESSING. SMALL AMOUNT OF SERO-SANGUINEOUS DRAINAGE NOTED ON GAUZE. COBAN RE- WRAPPED AROUND ARM. TOLERATED WELL. AREA TO RIGHT ELBOW LEFT OPEN TO AIR. NO DRAINAGE NOTED. DR. KAITLIN OLMOS MD Mirtha STROUD APRN
--- NOTE | 2017-09-30 09:58 | CONS ---
DATE OF CONSULTATION: 09/29/17 SUBJECTIVE: I did see him midmorning and the dressing was already changed by the nurse. I removed the dressing and part of the packing was out. The packing that was outside of the skin was transected. It was done aseptically. The surrounding induration and redness has regressed. The small areas were unroofed, the scabs were removed. The slightly bigger one which was about the size of a dime had central core of necrotic tissue. Neosporin ointment was applied in all the three areas. The biggest area in the forearm was dressed with a 4x4 followed by Coban. I told the patient that he most likely will be able to go home today and I will talk to Dr. Fontana but I would like to see him at the office tomorrow for changing the packing. The patient did show good understanding. I did call Dr. Fontana and talked to him about it and told him that I felt that the patient can go home either with an oral medication of Clindamycin 600mg three times a day or every 8 hours or an IV of Vancomycin probably daily instead of twice a day. The patient was given an appointment for tomorrow at 10:00 in the office. He was continued on Clindamycin 300mg three times a day. This will be do as every 8 hours. ANABELL
--- NOTE | 2017-09-30 10:00 | OP ---
DATE OF PROCEDURE: 09/28/17 INDICATIONS: 42 year old male seen yesterday as a consult from Dr. Fontana. He does have an abscess with surrounding erythema and induration on the medial side of the right forearm. He also had small areas one at the olecranon and two other small areas. These areas have more or less has regressed remarkable. The area in the medical side of the right forearm was drained at the emergency room. Packing was inserted. I had removed the packing earlier today 09/28/17 and did advise him that I will be coming back to do a wider incision. The patient was agreeable. The patient did sign a permit for me to perform the procedure. OPERATION: The patient is in a semirecumbent position with the arm flexed with the medical side facing towards the foot was then prepped and draped. 1% infiltration of Xylocaine was utilized. After it was infiltrated curved hemostat was inserted incision was then made initially towards the distal part of the forearm. This was followed by the proximal and then both anterior and posterior incisions were made. The incision is [place] shaped in nature. The cavity was then irrigated with Betadine diluted with saline. This was carried again and then followed by saline. There was some bleeding and the cavity was packed with 1/4inch Iodoform gauze. A dressing was applied and covered with Coban. The patient was advised to elevate the hand. The patient tolerated the procedure well. ANABELL
--- NOTE | 2017-09-30 13:40 | DS ---
DATE OF SERVICE: 09/29/17 FINAL DIAGNOSIS: 1. ACUTE CELLULITIS RIGHT UPPER EXTREMITY 2. RIGHT ARM WOUNDS X4, STATUS POST I & D TIMES TWO OF THE WOUNDS 3. MRSA RIGHT ARM WOUNDS 4. HYPERTENSION 5. ARTHRITIS DISCHARGE INSTRUCTIONS: Followup appointment with Dr. Stephen MEDICATIONS AT DISCHARGE: (TAKE THESE MEDICATIONS AT HOME) Hydrocodone/Acetaminophen one tab p.o. q.4h p.r.n. Clindamycin 300 mg p.o. t.i.d. times 10 days Zestril 40 mg p.o. bedtime LEONARDO Mobic 15 mg p.o. daily LEONARDO Bactroban ointment 1 gm TP b.i.d. LEONARDO DISCONTINUED MEDICATIONS: Decadron 4 mg IVP once STAT Dilaudid 0.5 mg IVP once STAT Dilaudid 1 mg IVP once STAT Vancomycin 250 mls/hr IV once STAT Sodium Chloride 1,000 mls @ 125 mls/hr IV q.8h LEONARDO Lidocaine 5 ml: SQ once STAT Bactroban 1 gm TP once STAT [place] 10-325 one tab p.o. once STAT NEW PRESCRIPTIONS: Clindamycin 300 mg one capsule 3 times a day for 10 days, take until all gone DIET INSTRUCTIONS: As tolerated. ACTIVITY: As tolerated. SMOKING: N/A DISEASE SPECIFIC EDUCATION: Cellulitis MRSA infections Medications Importance of followup appointments Wound care Bactroban use Bleach baths HOSPITAL COURSE: This is a 42-year-old white male who presented to the emergency room with redness and swelling on the lateral aspect of the right forearm. There is a history of MRSA in the household with both his and children. He states the area initially started out like a pimple however became larger, very tender with red streaks going up and down his arm. He has one large lesion and three other smaller lesions that appear pustular. The largest lesion was incised and drained in the emergency room with packing placed. One other lesion was also drained but did not require packing. He was subsequently admitted, placed on Clindamycin 600 mg IV q.8hr. He was already on [place] 10 q.4 hours p.r.n. for pain that is occurring in his right shoulder from a workman's comp case so this was continued. He was given 4 mg of IM Decadron. The wound was cultured which came back positive for MRSA. The largest lesion was incised and drained again by Dr. Stephen who was placed on surgical consult. This was done last night. He repacked the wound. We have been doing Bactroban to the other areas which as of today appear to be healing up. They are not draining. He still has some very mild improving erythema surrounding the largest lesion which is approximately 2 inches maybe 2.5 inches in diameter however there is no streaking going up the arm. He has remained afebrile through the course of his hospital stay. We will discharge him on Clindamycin 600 mg p.o. t.i.d. for the next 10 days. He has an appointment to followup with Dr. Stephen in his office tomorrow. He will followup with Dr. Moore, who is his primary care provider next week. Information regarding the spread of MRSA was given. I have instructed him to use nasal Bactroban intranasally at least once daily for the next 30 days and advised to do this with the rest of his family as well. We discussed the bleach baths once a week for he and the rest of his family in hopes to eradicate the MRSA. He is to keep the area covered and he will followup with his PCP and Dr. Stephen. He is discharged in stable condition. He will take his [place] that he previously has for pain control. TIME SPENT: More than 60 minutes. ANABELL
== END 2017-09-29 14:44 | disposition home or self-care (01) | DRG 603 ==
LOC: ED 16:38 → MEDSURG B 19:36
PROVIDERS: ADMIT Internal Medicine; ATTEND Internal Medicine
PROC: 0H9DXZZ Drainage of Right Lower Arm Skin, External Approach (ICD-10-PCS; principal; 2017-09-28)
DX: L02.411 Cutaneous abscess of right axilla (principal); L03.113 Cellulitis of right upper limb; L08.9 Local infection of the skin and subcutaneous tissue, unspecified; S41.111A Laceration without foreign body of right upper arm, initial encounter; B95.62 Methicillin resistant Staphylococcus aureus infection as the cause of diseases classified elsewhere; I10 Essential (primary) hypertension; M19.90 Unspecified osteoarthritis, unspecified site; M54.9 Dorsalgia, unspecified
CPT/HCPCS: 36415; 80053; 80202; 85025; 87040; 87070; 87186; 96365; 96375; 99285

== ENCOUNTER 2018-04-04 13:24 | Emergency (ER) ==
[2018-04-04 13:31] VITALS: BP 153/107; TEMP 97; BMI 28.3
--- NOTE | 2018-04-04 14:54 | DI ---
EXAM: Two views of the chest. History: Chest pain. Comparison: Chest radiograph 01/30/2013 Findings: Heart size is normal. No focal consolidation. No appreciable pleural fluid and no pneumo thorax. No acute osseous abnormalities. Impression: No acute cardiopulmonary process
--- NOTE | 2018-04-04 15:41 | ED.PDOC ---
General ED Provider: Dr. ALFREDO CASTILLO Chief Complaint: Psychiatric Complaint Stated Complaint: pt stated from time to time he has a panic attack today he had one such attack and had some chest discomfort associated with it Time Seen by Physician: 13:30 (seen with rn at all times ) Mode of Arrival: Walk-In Information Source: Patient Exam Limitations: No limitations Primary Care Provider: CELINA SERNA Nursing and Triage Documentation Reviewed and Agree: Yes Does patient meet sepsis criteria?: No System Inflammatory Response Syndrome: Not Applicable Sepsis Protocol: For patient's 13 years and over: Temp is 96.8 and below OR 101 and greater Pulse >90 BPM Resp >20/minute Acutely Altered Mental Status Are patient's symptoms suggestive of a new infection, such as: -Pneumonia -Skin, Soft Tissue -Endocarditis -UTI -Bone, Joint Infection -Implantable Device -Acute Abdominal Infection -Wound Infection -Meningitis -Blood Stream Catheter Infection -Unknown Psychological Complaint Exam - Psychiatric Complaint/Exam Patient Complains Of: Present: Other (anxiety). Absent: Depression, Suicidal thoughts, Suicidal gestures Onset/Duration: today lasted a few min Symptoms Are: Resolved Timing: Intermittent Initial Severity: Mild Current Severity: Mild Aggravating: Reports: None Associated Signs And Symptoms: Denies: Hostile, Confused, Hallucinating, Paranoid behavior, Sleep disturbance, Appetite change Related History: Denies: Suicidal thoughts, Suicidal plan, Suicidal gestures, Homicidal thoughts, Homicidal plan, Homicidal gestures, Prior attempts, Recent stressors, Drug ingestion Completed Suicide Risk Factors: Male, Patient In Custody Of Police: No Social Withdrawal Present: No Social Isolation Present: No Prior Suicide Attempt: No Injury From Prior Suicide Attempt: No Related Surgical History: Reports: None Patient Uncooperative For Exam: No Mood: Present: Anxious Appearance: Present: Clean Thought Process: Present: Logical Insight: Present: Good Memory: Intact Judgement: Normal Danger To Others: No Differential Diagnoses: Other (anxiety) Review of Systems - Review Of Systems Constitutional: Reports: No symptoms Eyes: Reports: No symptoms Ears, Nose, Mouth, Throat: Reports: No symptoms Respiratory: Reports: Cough Cardiac: Reports: Chest pain GI: Reports: No symptoms : Reports: No symptoms Musculoskeletal: Reports: No symptoms Skin: Reports: No symptoms Neurological: Reports: Anxiety Endocrine: Reports: No symptoms Hematologic/Lymphatic: Reports: No symptoms All Other Systems: Reviewed and Negative Past Medical History - Past Medical History Previously Healthy: Yes Endocrine: Reports: None Cardiovascular: Reports: None Respiratory: Reports: None Hematological: Reports: None Gastrointestinal: Reports: None Genitourinary: Reports: Other Neuro/Psych: Reports: Other Musculoskeletal: Reports: None Cancer: Reports: None - Surgical History General Surgical History: Reports: Orthopedic ( RIGHT KNEE, LEFT FOOT ) - Family History Family History: Reports: Unknown - Social History Smoking Status: Never smoker 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) Alcohol Screening: None Physical Exam - Physical Exam Appearance: Well-appearing, No pain distress, Well-nourished Eyes: HILDA, EOMI, Conjunctiva clear ENT: Ears normal, Nose normal, Oropharynx normal Respiratory: Airway patent, Breath sounds clear, Breath sounds equal, Respirations nonlabored Cardiovascular: RRR, Pulses normal, No rub, No murmur GI/: Soft, Nontender, No masses, Bowel sounds normal, No Organomegaly Musculoskeletal: Normal strength, ROM intact, No edema, No calf tenderness Skin: Warm, Dry, Normal color Neurological: Sensation intact, Motor intact, Reflexes intact, Cranial nerves intact, Alert, Oriented Psychiatric: Affect appropriate, Mood appropriate Interpretation - Vehicle Operator Technician Rate: Normal Rhythm: Sinus Ectopy: None - EKG Interpretation Rate: Normal Rhythm: Sinus Ectopy: None [place]: NL ST Segment: Normal Re-Evaluation - Re-Evaluation Time of Re-Evaluation: 14:00 Status: Improved Vital Signs Stable: Yes Pain Level: 0 Appearance: NAD Lungs: Clear Skin: Warm and Dry Neuro: Alert and Oriented X3 CV: RRR Additional Comments: no suicidal /homocidal ideation , plan . - Re-Evaluation Time of Re-Evaluation: 15:43 Status: Improved Vital Signs Stable: Yes Pain Level: 0 Appearance: NAD Skin: Warm and Dry Neuro: Alert and Oriented X3 CV: RRR (follow up discussed with pt . high protein discussed must have these issues checked in a near future) Critical Care Note - Critical Care Note Total Time (mins): 0 Course - Course Hematology/Chemistry: 04/04/18 14:20 04/04/18 14:20 Orders, Labs, Meds: Lab Review 04/04/18 04/04/18 04/04/18 14:20 14:20 14:20 WBC 6.06 RBC 4.49 L Hgb 14.5 Hct 41.8 L MCV 93.1 MCH 32.3 H MCHC 34.7 RDW Coeff of Suly 11.1 L Plt Count 335 Immature Gran % (Auto) 0.5 Neut % (Auto) 73.8 Lymph % (Auto) 21.1 [place] % (Auto) 3.5 Eos % (Auto) 0.3 Baso % (Auto) 0.8 Immature Gran # (Auto) 0.0 Neut # (Auto) 4.5 Lymph # (Auto) 1.3 [place] # (Auto) 0.2 L Eos # (Auto) 0.0 Baso # (Auto) 0.1 Sodium 140.0 Potassium 4.73 Chloride 99.5 Carbon Dioxide 29.1 Anion Gap 16.13 BUN 15.6 Creatinine 1.07 Estimated GFR (MDRD) 76.00 BUN/Creatinine Ratio 14.57 Glucose 95.9 Calcium 9.73 Total Bilirubin 0.60 AST 28.9 ALT 26.6 Alkaline Phosphatase 51.7 Total Creatine Kinase 187.4 H CK-MB (CK-2) 1.250 CK-MB (CK-2) % 0.6600 Troponin I < 0.012 Total Protein 8.30 H Albumin 5.16 H Globulin 3.14 Albumin/Globulin Ratio 1.64 Urine Opiates Screen Negative Ur Oxycodone Screen Positive Urine Methadone Screen Negative Ur Propoxyphene Screen Negative Ur Barbiturates Screen Negative U Tricyclic Antidepress Negative Ur Phencyclidine Scrn Negative Ur Amphetamine Screen Negative U Methamphetamines Scrn Negative U Benzodiazepines Scrn Negative Urine Cocaine Screen Negative U Cannabinoids Screen Negative Orders Category Date Time Status EKG-(ED ONLY) Stat CARDIO 04/04/18 14:05 Completed CBC W/ AUTO DIFF Stat LAB 04/04/18 14:20 Completed COMPREHENSIVE METABOLIC PANEL Stat LAB 04/04/18 14:20 Completed CREATINE KINASE Stat LAB 04/04/18 14:20 Completed TROPONIN I Stat LAB 04/04/18 14:20 Completed URINE DRUG SCREEN (RAPID FOR ED) [DRUG SCREEN, URINE, LAB 04/04/18 14:20 Completed RAPID] Stat CHEST, 2 VIEWS PA & LAT Stat RADS 04/04/18 14:04 Completed Vital Signs: Temp Pulse Resp BP Pulse Ox 04/04/18 13:24 97.0 F L 100 H 20 153/107 H 99 Departure - Departure Time of Disposition: 15:44 Disposition: HOME SELF-CARE Discharge Problem: Anxiety, Atypical chest pain Instructions: Chest Pain (ED) Condition: Good Pt referred to PMD for follow-up: Yes IPMP verified?: No Additional Instructions: Please call your Family Physician as soon as possible to schedule a follow-up appointment.your EKG AND CHEST X RAY ARE NORMAL. IF YOU SHOULD HAVE CHEST PAIN OR DISCOMFORT, FIXING TO PASS OUT, PASS OUT, HAVE PAINS RUNNING DOWN YOUR ARM NECK TOOTH MUST RETURN THESE MAY BE A DIFFERENT PAIN FROM ANXIETY RELATED TO YOUR HEART. YOUR PROTEIN IS HIGH HIGH PROTEIN CAN BE DUE TO SOME SERIOUS MEDICAL CONDITIONS WHICH CAN BE SERIOUS HAVE YOUR LABS CHECKED BY YOUR MD. ANXIETY CAN BE A CRIPPLING ISSUE FOR SOME PEOPLE , IF YOU HAVE ANY THOUGHTS TO HURT YOURSELF OR SOMONE ELSE . STOP RIGHT THERE CALL 911 AND COME TO E.R. WE CAN AND WILL HELP . YOU . MAY GOD BLESS YOU. Allergies/Adverse Reactions: Allergies No Known Allergies Allergy (Verified 04/04/18 13:27) Home Medications: Ambulatory Orders Loratadine [Claritin] 10 mg PO DAILY PRN #30 capsule 09/23/15 Hydrocodone/Acetaminophen [[place] 10-325 Tablet] 1 each PO Q4HR PRN 09/28/16 Meloxicam [Mobic] 15 mg PO DAILY 09/28/16 Lisinopril [Zestril] 40 mg PO BEDTIME 09/26/17
== END 2018-04-04 15:59 | disposition home or self-care (01) ==
LOC: ED 13:24
DX: F41.0 Panic disorder [episodic paroxysmal anxiety] (principal); R07.89 Other chest pain
CPT/HCPCS: 36415; 80053; 80306; 82550; 82553; 84484; 85025; 93005; 93010; 99283

== ENCOUNTER 2019-12-29 15:36 | Observation (INO) ==
[2019-12-29] MEDS ORDERED: PROTONIX IV IVP STA (16:16)
[2019-12-29] MEDS ORDERED: SODIUM CHLORIDE 1,000 ML IV STA ×3 (16:16→21:32)
[2019-12-29] MEDS ORDERED: ZOFRAN 4 MG/2 ML IVP STA (16:16)
--- NOTE | 2019-12-29 16:40 | DI ---
EXAM: Chest two view, frontal and lateral views. HISTORY: Shortness of breath. COMPARISON: 12/27/2019. FINDINGS: The heart size is normal. There is no pulmonary vascular congestion. The lungs are clear . No pleural effusion or pneumothorax is seen. No acute osseous abnormality identified. Since the prior study, there has been no significant interval change. IMPRESSION: No acute cardiopulmonary process.
[2019-12-29 16:49] LABS: BASOPHILS % (AUTO) 0.5 % (0.0-3.0); HEMATOCRIT 38.1 % (42.0-52.0); HEMOGLOBIN 13.8 g/dl (14.0-18.0); IMMATURE GRANULOCYTE % (AUTO) 0.2 % (0.0-5.0); LYMPHOCYTES # (AUTO) 0.6 K/uL (0.60-3.4); LYMPHOCYTES % (AUTO) 7.1 (10.0-50.0); MEAN CORPUSCULAR HGB CONC 36.2 (31.8-35.4); MEAN CORPUSCULAR VOLUME 91.1 fl (80.0-94.0); MONOCYTES # (AUTO) 0.4 K/uL (0.4-2.0); MONOCYTES % (AUTO) 4.6 (0-10); NEUTROPHILS # (AUTO) 7.1 K/ul (2.0-6.9); NEUTROPHILS % (AUTO) 87.6 % (42.2-75.2); PLATELET COUNT 267 10^3/uL (140-440); RED BLOOD COUNT 4.18 10^6/ul (4.70-6.10); WHITE BLOOD COUNT 8.06 K/ul (4.2-10.2)
[2019-12-29 17:02] LABS: ALANINE AMINOTRANSFERASE 42.1 U/L (0-50); ALBUMIN 5.02 g/dL (3.5-5.0); ALKALINE PHOSPHATASE 94.3 U/L (38-126); ASPARTATE AMINO TRANSFERASE 80.5 U/L (17-59); BILIRUBIN,TOTAL 1.46 mg/dL (0.2-1.3); BLOOD UREA NITROGEN 13.7 mg/dL (9-20); CALCIUM 9.91 mg/dL (8.4-10.2); CARBON DIOXIDE 19.7 mmol/L (22-30.0); CHLORIDE 100.7 mmol/L (98-107); CREATININE 1.07 mg/dL (0.60-1.10); POTASSIUM 4.02 mmol/L (3.5-5.1); SODIUM 138.2 mmol/L (134.5-145); TOTAL PROTEIN 8.12 g/dL (6.3-8.2)
[2019-12-29 17:06] LABS: BLOOD ALCOHOL < 10.0 mg/dL (0.0-50.0)
[2019-12-29 17:11] LABS: PARTIAL THROMBOPLASTIN TIME 22.4 SEC (23.9-40.0); PROTHROMBIN TIME 9.6 SEC (9.3-11.0)
[2019-12-29] MEDS ORDERED: LOPRESSOR IVP STA ×2 (17:29→19:18)
[2019-12-29] MEDS ORDERED: ATIVAN IVP STA (17:29)
[2019-12-29] MEDS ORDERED: CATAPRES PO STA (19:19)
[2019-12-29] MEDS ORDERED: TYLENOL PO STA (19:19)
[2019-12-29] MEDS ORDERED: ATIVAN PO STA (21:20)
[2019-12-29] MEDS ORDERED: CARDENE 20 MG/200 ML NACL 20 MG/200 ML BAG IV ONE (21:29)
[2019-12-29] MEDS ORDERED: CARDENE 20 MG/200 ML NACL 20 MG/200 ML BAG IV SCH ×2 (21:30→23:00)
--- NOTE | 2019-12-29 22:53 | ED.PDOC ---
General ED Provider: Dr. ROLO VARMA MD Chief Complaint: Nausea/Vomiting Stated Complaint: nausea, vomiting, elevated blood pressure, wants detox from alcohol Time Seen by Physician: 17:46 Mode of Arrival: Walk-In Information Source: Patient Primary Care Provider: CELINA SERNA Nursing and Triage Documentation Reviewed and Agree: Yes Does patient meet sepsis criteria?: No If yes, has appropriate treatment been initiated?: Yes System Inflammatory Response Syndrome: Pulse >90 BPM Sepsis Protocol: For patient's 13 years and over: Temp is 96.8 and below OR 101 and greater Pulse >90 BPM Resp >20/minute Acutely Altered Mental Status Are patient's symptoms suggestive of a new infection, such as: -Pneumonia -Skin, Soft Tissue -Endocarditis -UTI -Bone, Joint Infection -Implantable Device -Acute Abdominal Infection -Wound Infection -Meningitis -Blood Stream Catheter Infection -Unknown GI Complaint Exam Vomiting/Diarrhea Complaint/Exam Onset/Duration: 1 day Symptoms Are: Still present Episodes of Vomiting over last 24 Hours: 3 Episodes of Diarrhea Over Last 24 Hours: 7 Initial Severity: Moderate Current Severity: Moderate Character of Vomiting: Reports Non-bilious Character of Diarrhea: Reports Watery Aggravating: Reports Food Alleviating: Reports None Associated Signs and Symptoms: Reports Hematemesis Related History: Reports Similar episode Non-GI Risk Factors: Reports None Surgical Obstruction Risk Factors: Reports None Related Surgical History: Reports None Abdominal Findings: Present None [place] Respirations Present: No Differential Diagnoses: Gastritis, PUD, Viral Gastroenteritis and Pancreatitis Review of Systems Review Of Systems Constitutional: Reports No symptoms Eyes: Reports No symptoms Ears, Nose, Mouth, Throat: Reports No symptoms Respiratory: Reports No symptoms Cardiac: Reports Chest pain GI: Reports Diarrhea, Nausea and Vomiting : Reports No symptoms Musculoskeletal: Reports No symptoms Skin: Reports No symptoms Neurological: Reports No symptoms Endocrine: Reports No symptoms Hematologic/Lymphatic: Reports No symptoms All Other Systems: Reviewed and Negative [facility] Medical History Hypertension Social History (Updated 12/30/19 @ 00:19 by ROBERT ELAM RN) Smoking and tobacco status: Never smoker Alcohol intake: current Alcohol intake frequency: 3 or more drinks per day Alcohol type: hard liquor Details: drinks 2 5ths of vodka a day Surgical History Esophageal reconection History of ear, nose, and throat (ENT) surgery Left Foot Reconstruction Right Knee Clean and Scraped Shoulder repair Physical Exam Physical Exam Appearance: Reports No pain distress Ill-appearing: Mild Pain Distress: None Eyes: Reports HILDA ENT: Reports Ears normal, Nose normal and Dry mucosa Neck: Supple Respiratory: Reports Airway patent and Breath sounds clear Cardiovascular: Reports Pulses normal GI/: Reports Nontender, No Organomegaly and Hepatomegaly; Denies Mass and Splenomegaly Musculoskeletal: Reports Normal strength Skin: Reports Warm Neurological: Reports Sensation intact and Motor intact Psychiatric: Reports Anxious and Depressed Re-Evaluation Re-Evaluation Time of Re-Evaluation: 21:30 Vital Signs Stable: Yes Additional Comments: blood pressure uncontrolled, 168/111 Critical Care Note Critical Care Note Total Critical Care Time (mins): 30 Course Course Hematology/Chemistry: 12/30/19 05:00 12/29/19 16:30 Orders, Labs, Meds: Lab Review 12/29/19 12/29/19 12/29/19 16:00 16:30 16:30 WBC 8.06 RBC 4.18 L Hgb 13.8 L Hct 38.1 L MCV 91.1 MCH 33.0 H MCHC 36.2 H RDW Coeff of Suly 13.0 Plt Count 267 Immature Gran % (Auto) 0.2 Neut % (Auto) 87.6 H Lymph % (Auto) 7.1 L [place] % (Auto) 4.6 Eos % (Auto) 0.0 Baso % (Auto) 0.5 Neut # (Auto) 7.1 H Lymph # (Auto) 0.6 [place] # (Auto) 0.4 Eos # (Auto) 0.0 Baso # (Auto) 0.0 Immature Gran # (Auto) 0.0 PT 9.6 INR 0.98 APTT 22.4 L Sodium Potassium Chloride Carbon Dioxide Anion Gap BUN Creatinine Estimated GFR (MDRD) BUN/Creatinine Ratio Glucose Calcium Total Bilirubin AST ALT Alkaline Phosphatase Total Protein Albumin Globulin Albumin/Globulin Ratio Plasma/Serum Alcohol Blood Type O POSITIVE Antibody Screen 12/29/19 12/29/19 16:30 16:30 WBC RBC Hgb Hct MCV MCH MCHC RDW Coeff of Suly Plt Count Immature Gran % (Auto) Neut % (Auto) Lymph % (Auto) [place] % (Auto) Eos % (Auto) Baso % (Auto) Neut # (Auto) Lymph # (Auto) [place] # (Auto) Eos # (Auto) Baso # (Auto) Immature Gran # (Auto) PT INR APTT Sodium 138.2 Potassium 4.02 Chloride 100.7 Carbon Dioxide 19.7 L Anion Gap 21.82 BUN 13.7 Creatinine 1.07 Estimated GFR (MDRD) 75.00 BUN/Creatinine Ratio 12.80 Glucose 104.0 Calcium 9.91 Total Bilirubin 1.46 H AST 80.5 H ALT 42.1 Alkaline Phosphatase 94.3 Total Protein 8.12 Albumin 5.02 H Globulin 3.10 Albumin/Globulin Ratio 1.61 Plasma/Serum Alcohol < 10.0 Blood Type O POSITIVE Antibody Screen Negative Orders Category Date Time Status EKG-(ED ONLY) Stat CARDIO 12/29/19 19:18 Completed EKG-(IP & OP ONLY) DAILY CARDIO 12/30/19 06:00 Completed EKG-(IP & OP ONLY) DAILY CARDIO 12/31/19 06:00 Ordered ACTIVITY .BR with BRP CARE 12/29/19 22:55 Active CASE MANAGEMENT CONSULT 0600 CARE 12/29/19 22:56 Active INTAKE & OUTPUT Q8HR CARE 12/29/19 22:56 Active SEIZURE ASSESSMENT .PRN CARE 12/29/19 23:02 Active SEIZURE PRECAUTIONS .AT ALL TIMES CARE 12/29/19 23:02 Active VITAL SIGNS Q4HR CARE 12/29/19 22:56 Active CARDIAC DIET DIETARY 12/29/19 Breakfast Ordered ED APPLY ICE AFFECTED AREA QID EMERGENCY 12/29/19 23:24 Active ED MUSIC CRITIC APPLIED .ONCE EMERGENCY 12/29/19 16:16 Active ED IV/MEDIPORT/POWERPORT .ONCE EMERGENCY 12/29/19 16:16 Active ED ORTHOSTATIC VITAL SIGNS .ONCE EMERGENCY 12/29/19 16:16 Active BLOOD ALCOHOL Stat LAB 12/29/19 16:30 Completed CBC W/ AUTO DIFF DAILY@0600 LAB 12/30/19 05:00 Completed CBC W/ AUTO DIFF DAILY@0600 LAB 12/31/19 06:00 Ordered CBC W/ AUTO DIFF Stat LAB 12/29/19 16:30 Completed COMPREHENSIVE METABOLIC PANEL Stat LAB 12/29/19 16:30 Completed PARTIAL THROMBOPLASTIN TIME Stat LAB 12/29/19 16:30 Completed PT WITH INR Stat LAB 12/29/19 16:30 Completed TROPONIN I Q8H LAB 12/30/19 05:00 Completed TROPONIN I Q8H LAB 12/30/19 13:00 Ordered TYPE AND SCREEN Stat LAB 12/29/19 16:30 Completed 0.9 % Sodium Chloride [Saline Flush] MEDS 12/29/19 16:16 Active 1 syr IVF PRN PRN Acetaminophen [Tylenol] MEDS 12/29/19 19:19 Discontinued 1,000 mg PO ONCE STA Clonidine HCl [Catapres] MEDS 12/29/19 19:19 Discontinued 0.1 mg PO ONCE STA Lorazepam Inj [Ativan] MEDS 12/29/19 17:29 Discontinued 1 mg IVP ONCE STA Lorazepam [Ativan] MEDS 12/29/19 21:20 Discontinued 1 mg PO ONCE STA Lorazepam [Ativan] MEDS 12/30/19 09:00 Discontinued 1 mg PO TID Metoprolol Tartrate [Lopressor] MEDS 12/29/19 17:29 Discontinued 5 mg IVP ONCE STA Metoprolol Tartrate [Lopressor] MEDS 12/29/19 19:18 Discontinued 5 mg IVP ONCE STA Nicardipine in NaCl, Iso-Osm [Cardene 20 mg/200 ml NaCl MEDS 12/29/19 21:29 Discontinued ] 20 mg in 200 ml IV .STK-MED Nicardipine in NaCl, Iso-Osm [Cardene 20 mg/200 ml NaCl MEDS 12/29/19 21:30 Discontinued ] 20 mg in 200 ml IV TITRATE Nicardipine in NaCl, Iso-Osm [Cardene 20 mg/200 ml NaCl MEDS 12/29/19 23:00 Pending ] 20 mg in 200 ml IV TITRATE Ondansetron HCl/Pf [Zofran 4 mg/2 ml] MEDS 12/29/19 16:16 Discontinued 4 mg IVP ONCE STA Ondansetron [Zofran Odt] MEDS 12/29/19 22:59 Active 4 mg PO TID PRN Pantoprazole Sodium [Protonix IV] MEDS 12/29/19 16:16 Discontinued 40 mg IVP ONCE STA Pantoprazole Sodium [Protonix] MEDS 12/30/19 06:30 Active 40 mg PO QDAC Potassium Chloride/D5-0.9%NaCl [D5%-Ns-KCl 20 Meq/l IV MEDS 12/29/19 23:00 Active Priscila] 1,000 ml IV 75 mls/hr Sodium Chloride 0.9% [Sodium Chloride] 1,000 ml MEDS 12/29/19 21:32 Active IV 30 mls/hr Sodium Chloride 0.9% [Sodium Chloride] 1,000 ml MEDS 12/29/19 16:16 Discontinued IV BOLUS Sodium Chloride 0.9% [Sodium Chloride] 1,000 ml MEDS 12/29/19 19:18 Discontinued IV BOLUS Tramadol HCl [Ultram] MEDS 12/29/19 23:24 Active 50 mg PO Q6H PRN Vitamin B-1 [Thiamine] MEDS 12/30/19 09:00 Active 100 mg PO DAILY RESUSCITATION STATUS Routine OTHERS 12/29/19 22:55 Ordered CHEST, 2 VIEWS PA & LAT Stat RADS 12/29/19 16:16 Completed Medications Generic Name Dose Route Start Last Admin Trade Name Freq PRN Reason Stop Dose Admin Amlodipine Besylate 10 mg 12/30/19 09:00 Amlodipine Besylate 5 Mg Tablet PO DAILY LEONARDO Chlordiazepoxide HCl 10 mg 12/30/19 01:00 12/30/19 01:06 Chlordiazepoxide Hcl 10 Mg Capsule PO 10 mg TID LEONARDO Administration Escitalopram Oxalate 10 mg 12/30/19 09:00 Escitalopram Oxalate 10 Mg Tablet PO DAILY LEONARDO Sodium Chloride 1,000 mls @ 30 mls/hr 12/29/19 21:32 12/29/19 21:34 Sodium Chloride IV 12/31/19 06:51 30 mls/hr .[id number] STA Administration Potassium Chloride/Dextrose/Sod Cl 1,000 mls @ 75 mls/hr 12/29/19 23:00 12/30/19 00:11 D5%-Ns-Kcl 20 Meq/L Iv Priscila IV 75 mls/hr .[id number] LEONARDO Administration Nicardipine/Sodium Chloride 20 mg in 200 mls @ 50 mls/hr 12/29/19 23:00 Cardene 20 Mg/200 Ml Nacl IV TITRATE LEONARDO Protocol 5 MG/HR Lisinopril 40 mg 12/30/19 21:00 Lisinopril 40 Mg Tablet PO BEDTIME LEONARDO Lorazepam 1 mg 12/30/19 00:46 Lorazepam 1 Mg Tablet PO TID PRN Anxiety Ondansetron HCl 4 mg 12/29/19 22:59 Ondansetron Hcl 4 Mg Tab.Rapdis PO TID PRN nausea Pantoprazole Sodium 40 mg 12/30/19 06:30 12/30/19 06:01 Pantoprazole Sodium 40 Mg Tablet.Dr PO 40 mg QDAC LEONARDO Administration Sodium Chloride 1 syr 12/29/19 16:16 12/29/19 16:47 0.9% Sodium Chloride 10 Ml Disp.Syrin IVF 1 syr PRN PRN Administration To flush IV Thiamine HCl 100 mg 12/30/19 09:00 Vitamin B-1 100 Mg Tablet PO DAILY LEONARDO Tramadol HCl 50 mg 12/29/19 23:24 12/30/19 00:20 Tramadol Hcl 50 Mg Tablet PO 50 mg Q6H PRN Administration headache Discontinued Medications Generic Name Dose Route Start Last Admin Trade Name Freq PRN Reason Stop Dose Admin Acetaminophen 1,000 mg 12/29/19 19:19 12/29/19 20:12 Acetaminophen 500 Mg Tablet PO 12/29/19 19:20 1,000 mg ONCE STA Administration Clonidine 0.1 mg 12/29/19 19:19 12/29/19 20:13 Clonidine Hcl 0.1 Mg Tablet PO 12/29/19 19:20 0.1 mg ONCE STA Administration Sodium Chloride 1,000 mls @ 1,000 mls/hr 12/29/19 16:16 12/29/19 16:46 Sodium Chloride IV 12/29/19 17:15 1,000 mls/hr BOLUS STA Administration Sodium Chloride 1,000 mls @ 1,000 mls/hr 12/29/19 19:18 12/29/19 20:12 Sodium Chloride IV 12/29/19 20:17 1,000 mls/hr BOLUS STA Administration Nicardipine/Sodium Chloride 20 mg in 200 mls @ 50 mls/hr 12/29/19 21:30 12/29/19 21:45 Cardene 20 Mg/200 Ml Nacl IV 5.5 mg/hr TITRATE LEONARDO 55 mls/hr Titration Protocol 5 MG/HR Lorazepam 1 mg 12/29/19 17:29 12/29/19 17:58 Lorazepam Inj 2 Mg/Ml Disp.Syringe IVP 12/29/19 17:30 1 mg ONCE STA Administration Lorazepam 1 mg 12/29/19 21:20 12/29/19 21:31 Lorazepam 1 Mg Tablet PO 12/29/19 21:21 1 mg ONCE STA Administration Lorazepam 1 mg 12/30/19 09:00 Lorazepam 1 Mg Tablet PO TID LEONARDO Metoprolol Tartrate 5 mg 12/29/19 17:29 12/29/19 17:59 Metoprolol Tartrate 5 Mg/5 Ml Vial IVP 12/29/19 17:30 5 mg ONCE STA Administration Metoprolol Tartrate 5 mg 12/29/19 19:18 12/29/19 20:14 Metoprolol Tartrate 5 Mg/5 Ml Vial IVP 12/29/19 19:19 5 mg ONCE STA Administration Ondansetron HCl 4 mg 12/29/19 16:16 12/29/19 16:46 Ondansetron Hcl/Pf 4 Mg/2 Ml Sdv IVP 12/29/19 16:17 4 mg ONCE STA Administration Pantoprazole Sodium 40 mg 12/29/19 16:16 12/29/19 16:46 Pantoprazole Sodium 40 Mg Vial IVP 12/29/19 16:17 40 mg ONCE STA Administration Vital Signs: Temp Pulse Resp BP Pulse Ox 12/29/19 23:13 97.4 F L 84 20 149/97 H 95 12/29/19 22:30 84 149/97 H 12/29/19 22:15 82 141/96 H 12/29/19 22:00 78 142/101 H 12/29/19 21:45 88 149/103 H 12/29/19 16:36 132 H 163/109 H 12/29/19 16:35 122 H 157/114 H 12/29/19 15:37 97.4 F L 107 H 20 162/126 H 95 Discharge Plan Discharge Patient Disposition: PLACED OBSERVATION Discharge Problem: Hypertensive urgency Alcoholic gastritis Qualifiers: Chronicity: acute Gastritis bleeding: presence of bleeding unspecified Qualified Code(s): K29.20 - Alcoholic gastritis without bleeding ED Provider: ROLO VARMA Condition: Stable Physician Progress Note: []
[2019-12-29] MEDS ORDERED: ZOFRAN ODT PO PRN (22:59)
--- NOTE | 2019-12-29 23:13 | PCM ---
Chief Complaint Chief Complaint: dry heaves after alcohol, elevated blood pressure History of Present Illness History of Present Illness: 44 year old male, alcoholic, has been seeking detox, but did not follow up as recently referred, continues to drink vodka, has had dry heaves with small amount of bright red blood noted; no history of esophageal varices, bleeding ulcer; history of alcoholic liver disease. Review of Systems Constitutional: Reports Weakness Eyes: Reports No symptoms Ears: Reports No symptoms Nose: Reports No symptoms Throat: Reports No symptoms Mouth: Reports No symptoms Respiratory: Reports No symptoms Cardiovascular: Reports Palpitations Gastrointestinal: Reports Abdominal pain, Nausea, Diarrhea and Hematemesis Genitourinary: Reports No symptoms Neurological: Reports Headache; Denies Tremor and Fainting Musculoskeletal: Reports No symptoms Skin: Reports No symptoms Immunology: Reports No symptoms Hematology: Reports No symptoms; Denies Easy bruising Endocrine: Reports No symptoms Psychiatric: Reports Depression and Anxiety Habits: Reports Alcohol use Allergies Allergies Allergy/AdvReac Type Severity Reaction Status Date / Time No Known Allergies Allergy Unverified 12/29/19 15:45 PFSH Medical History Abdominal pain Alcohol abuse Alcoholic gastritis Hypertension Surgical History Esophageal reconection History of ear, nose, and throat (ENT) surgery Left Foot Reconstruction Right Knee Clean and Scraped Shoulder repair Social History Smoking and tobacco status: Never smoker Alcohol intake: current Alcohol intake frequency: 3 or more drinks per day Alcohol type: hard liquor Details: drinks 2 5ths of vodka a day Medications Medications: Medications Generic Name Dose Route Start Last Admin Trade Name Freq PRN Reason Stop Dose Admin Nicardipine/Sodium Chloride 20 mg in 200 mls @ 50 mls/hr 12/29/19 21:30 12/29/19 21:45 Cardene 20 Mg/200 Ml Nacl IV 5.5 mg/hr TITRATE LEONARDO 55 mls/hr Titration Protocol 5 MG/HR Sodium Chloride 1,000 mls @ 30 mls/hr 12/29/19 21:32 12/29/19 21:34 Sodium Chloride IV 12/31/19 06:51 30 mls/hr .[id number] STA Administration Potassium Chloride/Dextrose/Sod Cl 1,000 mls @ 75 mls/hr 12/29/19 23:00 D5%-Ns-Kcl 20 Meq/L Iv Priscila IV .[id number] [facility] Nicardipine/Sodium Chloride 20 mg in 200 mls @ 50 mls/hr 12/29/19 23:00 Cardene 20 Mg/200 Ml Nacl IV TITRATE LEONARDO Protocol 5 MG/HR Lorazepam 1 mg 12/30/19 09:00 Lorazepam 1 Mg Tablet PO TID [facility] Ondansetron HCl 4 mg 12/29/19 22:59 Ondansetron Hcl 4 Mg Tab.Rapdis PO TID PRN nausea Pantoprazole Sodium 40 mg 12/30/19 06:30 Pantoprazole Sodium 40 Mg Tablet.Dr PO QDAC [facility] Sodium Chloride 1 syr 12/29/19 16:16 12/29/19 16:47 0.9% Sodium Chloride 10 Ml Disp.Syrin IVF 1 syr PRN PRN Administration To flush IV Thiamine HCl 100 mg 12/30/19 09:00 Vitamin B-1 100 Mg Tablet PO DAILY [facility] Body Composition Height: 5 ft 10 in Weight: 103.238 kg Body Mass Index (BMI): 32.6 Vital Signs Temperature: 97.4 F Pulse Rate: 84 Respiratory Rate: 20 Blood Pressure: 149/97 O2 Sat by Pulse Oximetry: 95 Physical Examination Ill-appearing: Mild Pain Distress: Mild Eyes: Reports HILDA, EOMI and Conjunctiva clear ENT: Reports Ears normal, Nose normal and Dry mucosa Neck: Supple Respiratory: Reports Airway patent Cardiovascular: Reports RRR and Tachycardia GI/: Reports Soft, Nontender and Hepatomegaly Musculoskeletal: Reports Normal strength and ROM intact Skin: Reports Warm Neurological: Reports Sensation intact, Motor intact and Reflexes intact Psychiatric: Reports Anxious and Depressed Lab/Tests/Diagnostic Imaging Lab/Tests/Diagnostic Imaging: Lab Review 12/29/19 12/29/19 12/29/19 16:00 16:30 16:30 WBC 8.06 RBC 4.18 L Hgb 13.8 L Hct 38.1 L MCV 91.1 MCH 33.0 H MCHC 36.2 H RDW Coeff of Suly 13.0 Plt Count 267 Immature Gran % (Auto) 0.2 Neut % (Auto) 87.6 H Lymph % (Auto) 7.1 L [place] % (Auto) 4.6 Eos % (Auto) 0.0 Baso % (Auto) 0.5 Neut # (Auto) 7.1 H Lymph # (Auto) 0.6 [place] # (Auto) 0.4 Eos # (Auto) 0.0 Baso # (Auto) 0.0 Immature Gran # (Auto) 0.0 PT 9.6 INR 0.98 APTT 22.4 L Sodium Potassium Chloride Carbon Dioxide Anion Gap BUN Creatinine Estimated GFR (MDRD) BUN/Creatinine Ratio Glucose Calcium Total Bilirubin AST ALT Alkaline Phosphatase Total Protein Albumin Globulin Albumin/Globulin Ratio Plasma/Serum Alcohol Blood Type O POSITIVE Antibody Screen 12/29/19 12/29/19 16:30 16:30 WBC RBC Hgb Hct MCV MCH MCHC RDW Coeff of Suly Plt Count Immature Gran % (Auto) Neut % (Auto) Lymph % (Auto) [place] % (Auto) Eos % (Auto) Baso % (Auto) Neut # (Auto) Lymph # (Auto) [place] # (Auto) Eos # (Auto) Baso # (Auto) Immature Gran # (Auto) PT INR APTT Sodium 138.2 Potassium 4.02 Chloride 100.7 Carbon Dioxide 19.7 L Anion Gap 21.82 BUN 13.7 Creatinine 1.07 Estimated GFR (MDRD) 75.00 BUN/Creatinine Ratio 12.80 Glucose 104.0 Calcium 9.91 Total Bilirubin 1.46 H AST 80.5 H ALT 42.1 Alkaline Phosphatase 94.3 Total Protein 8.12 Albumin 5.02 H Globulin 3.10 Albumin/Globulin Ratio 1.61 Plasma/Serum Alcohol < 10.0 Blood Type O POSITIVE Antibody Screen Negative Orders Category Date Time Status PLACE PATIENT OBSERVATION .TO SCU (MONITORED BED) ADMISSION 12/29/19 22:53 Active EKG-(ED ONLY) Stat CARDIO 12/29/19 19:18 Completed EKG-(IP & OP ONLY) DAILY CARDIO 12/30/19 06:00 Ordered EKG-(IP & OP ONLY) DAILY CARDIO 12/31/19 06:00 Ordered ACTIVITY .BR with BRP CARE 12/29/19 22:55 Active CASE MANAGEMENT CONSULT ONCE CARE 12/29/19 22:56 Active INTAKE & OUTPUT Q8HR CARE 12/29/19 22:56 Active SEIZURE ASSESSMENT .PRN CARE 12/29/19 23:02 Active SEIZURE PRECAUTIONS .AT ALL TIMES CARE 12/29/19 23:02 Active TELEMETRY MONITORING TELE CARE 12/29/19 22:54 Active VITAL SIGNS Q4HR CARE 12/29/19 22:56 Active CARDIAC DIET DIETARY 12/29/19 Breakfast Ordered ED CONTRACT ADMIN APPLIED .ONCE EMERGENCY 12/29/19 16:16 Active ED IV/MEDIPORT/POWERPORT .ONCE EMERGENCY 12/29/19 16:16 Active ED ORTHOSTATIC VITAL SIGNS .ONCE EMERGENCY 12/29/19 16:16 Active BLOOD ALCOHOL Stat LAB 12/29/19 16:30 Completed CBC W/ AUTO DIFF DAILY@0600 LAB 12/30/19 06:00 Ordered CBC W/ AUTO DIFF DAILY@0600 LAB 12/31/19 06:00 Ordered CBC W/ AUTO DIFF Stat LAB 12/29/19 16:30 Completed COMPREHENSIVE METABOLIC PANEL Stat LAB 12/29/19 16:30 Completed PARTIAL THROMBOPLASTIN TIME Stat LAB 12/29/19 16:30 Completed PT WITH INR Stat LAB 12/29/19 16:30 Completed TROPONIN I Q8H LAB 12/30/19 05:00 Ordered TROPONIN I Q8H LAB 12/30/19 13:00 Ordered TYPE AND SCREEN Stat LAB 12/29/19 16:30 Completed 0.9 % Sodium Chloride [Saline Flush] MEDS 12/29/19 16:16 Active 1 syr IVF PRN PRN Acetaminophen [Tylenol] MEDS 12/29/19 19:19 Discontinued 1,000 mg PO ONCE STA Clonidine HCl [Catapres] MEDS 12/29/19 19:19 Discontinued 0.1 mg PO ONCE STA Lorazepam Inj [Ativan] MEDS 12/29/19 17:29 Discontinued 1 mg IVP ONCE STA Lorazepam [Ativan] MEDS 12/29/19 21:20 Discontinued 1 mg PO ONCE STA Lorazepam [Ativan] MEDS 12/30/19 09:00 Ordered 1 mg PO TID Metoprolol Tartrate [Lopressor] MEDS 12/29/19 17:29 Discontinued 5 mg IVP ONCE STA Metoprolol Tartrate [Lopressor] MEDS 12/29/19 19:18 Discontinued 5 mg IVP ONCE STA Nicardipine in NaCl, Iso-Osm [Cardene 20 mg/200 ml NaCl MEDS 12/29/19 21:29 Discontinued ] 20 mg in 200 ml IV .STK-MED Nicardipine in NaCl, Iso-Osm [Cardene 20 mg/200 ml NaCl MEDS 12/29/19 21:30 Active ] 20 mg in 200 ml IV TITRATE Nicardipine in NaCl, Iso-Osm [Cardene 20 mg/200 ml NaCl MEDS 12/29/19 23:00 Ordered ] 20 mg in 200 ml IV TITRATE Ondansetron HCl/Pf [Zofran 4 mg/2 ml] MEDS 12/29/19 16:16 Discontinued 4 mg IVP ONCE STA Ondansetron [Zofran Odt] MEDS 12/29/19 22:59 Ordered 4 mg PO TID PRN Pantoprazole Sodium [Protonix IV] MEDS 12/29/19 16:16 Discontinued 40 mg IVP ONCE STA Pantoprazole Sodium [Protonix] MEDS 12/30/19 06:30 Ordered 40 mg PO QDAC Potassium Chloride/D5-0.9%NaCl [D5%-Ns-KCl 20 Meq/l IV MEDS 12/29/19 23:00 Ordered Priscila] 1,000 ml IV 75 mls/hr Sodium Chloride 0.9% [Sodium Chloride] 1,000 ml MEDS 12/29/19 21:32 Active IV 30 mls/hr Sodium Chloride 0.9% [Sodium Chloride] 1,000 ml MEDS 12/29/19 16:16 Discontinued IV BOLUS Sodium Chloride 0.9% [Sodium Chloride] 1,000 ml MEDS 12/29/19 19:18 Discontinued IV BOLUS Vitamin B-1 [Thiamine] MEDS 12/30/19 09:00 Ordered 100 mg PO DAILY RESUSCITATION STATUS Routine OTHERS 12/29/19 22:55 Ordered CHEST, 2 VIEWS PA & LAT Stat RADS 12/29/19 16:16 Completed Medications Generic Name Dose Route Start Last Admin Trade Name Freq PRN Reason Stop Dose Admin Nicardipine/Sodium Chloride 20 mg in 200 mls @ 50 mls/hr 12/29/19 21:30 12/29/19 21:45 Cardene 20 Mg/200 Ml Nacl IV 5.5 mg/hr TITRATE LEONARDO 55 mls/hr Titration Protocol 5 MG/HR Sodium Chloride 1,000 mls @ 30 mls/hr 12/29/19 21:32 12/29/19 21:34 Sodium Chloride IV 12/31/19 06:51 30 mls/hr .[id number] STA Administration Potassium Chloride/Dextrose/Sod Cl 1,000 mls @ 75 mls/hr 12/29/19 23:00 D5%-Ns-Kcl 20 Meq/L Iv Priscila IV .[id number] LEONARDO Nicardipine/Sodium Chloride 20 mg in 200 mls @ 50 mls/hr 12/29/19 23:00 Cardene 20 Mg/200 Ml Nacl IV TITRATE LEONARDO Protocol 5 MG/HR Lorazepam 1 mg 12/30/19 09:00 Lorazepam 1 Mg Tablet PO TID LEONARDO Ondansetron HCl 4 mg 12/29/19 22:59 Ondansetron Hcl 4 Mg Tab.Rapdis PO TID PRN nausea Pantoprazole Sodium 40 mg 12/30/19 06:30 Pantoprazole Sodium 40 Mg Tablet.Dr PO QDAC LEONARDO Sodium Chloride 1 syr 12/29/19 16:16 12/29/19 16:47 0.9% Sodium Chloride 10 Ml Disp.Syrin IVF 1 syr PRN PRN Administration To flush IV Thiamine HCl 100 mg 12/30/19 09:00 Vitamin B-1 100 Mg Tablet PO DAILY LEONARDO Discontinued Medications Generic Name Dose Route Start Last Admin Trade Name Freq PRN Reason Stop Dose Admin Acetaminophen 1,000 mg 12/29/19 19:19 12/29/19 20:12 Acetaminophen 500 Mg Tablet PO 12/29/19 19:20 1,000 mg ONCE STA Administration Clonidine 0.1 mg 12/29/19 19:19 12/29/19 20:13 Clonidine Hcl 0.1 Mg Tablet PO 12/29/19 19:20 0.1 mg ONCE STA Administration Sodium Chloride 1,000 mls @ 1,000 mls/hr 12/29/19 16:16 12/29/19 16:46 Sodium Chloride IV 12/29/19 17:15 1,000 mls/hr BOLUS STA Administration Sodium Chloride 1,000 mls @ 1,000 mls/hr 12/29/19 19:18 12/29/19 20:12 Sodium Chloride IV 12/29/19 20:17 1,000 mls/hr BOLUS STA Administration Lorazepam 1 mg 12/29/19 17:29 12/29/19 17:58 Lorazepam Inj 2 Mg/Ml Disp.Syringe IVP 12/29/19 17:30 1 mg ONCE STA Administration Lorazepam 1 mg 12/29/19 21:20 12/29/19 21:31 Lorazepam 1 Mg Tablet PO 12/29/19 21:21 1 mg ONCE STA Administration Metoprolol Tartrate 5 mg 12/29/19 17:29 12/29/19 17:59 Metoprolol Tartrate 5 Mg/5 Ml Vial IVP 12/29/19 17:30 5 mg ONCE STA Administration Metoprolol Tartrate 5 mg 12/29/19 19:18 12/29/19 20:14 Metoprolol Tartrate 5 Mg/5 Ml Vial IVP 12/29/19 19:19 5 mg ONCE STA Administration Ondansetron HCl 4 mg 12/29/19 16:16 12/29/19 16:46 Ondansetron Hcl/Pf 4 Mg/2 Ml Sdv IVP 12/29/19 16:17 4 mg ONCE STA Administration Pantoprazole Sodium 40 mg 12/29/19 16:16 12/29/19 16:46 Pantoprazole Sodium 40 Mg Vial IVP 12/29/19 16:17 40 mg ONCE STA Administration Assessment (1) Alcoholic gastritis: Status: Acute Code(s): K29.20 - Alcoholic gastritis without bleeding SNOMED Code(s): 0960370 Qualifiers: Chronicity: acute Gastritis bleeding: presence of bleeding unspecified Qualified Code(s): K29.20 - Alcoholic gastritis without bleeding (2) Hypertensive urgency: Status: Acute Code(s): I16.0 - Hypertensive urgency SNOMED Code(s): 579576138 Plan Plan: Observation with telemetry; Cardene drip for control of blood pressure and tachycardia. Recheck CBC in am. Serum metanephrines. ndorse to kristian
[2019-12-30] MEDS: D5%-NS-KCL 20 MEQ/L IV SOL 1,000 ML IV SCH ×2 (00:11→13:37)
[2019-12-30] MEDS: ULTRAM PO PRN ×3 (00:20→15:52)
[2019-12-30 00:25] VITALS: BMI 39.7
[2019-12-30] MEDS: LIBRIUM PO SCH ×4 (01:06→20:12)
[2019-12-30 05:19] LABS: BASOPHILS % (AUTO) 0.9 % (0.0-3.0); EOSINOPHILS # (AUTO) 0.1 K/ul (0.0-0.7); HEMATOCRIT 33.3 % (42.0-52.0); HEMOGLOBIN 11.7 g/dl (14.0-18.0); IMMATURE GRANULOCYTE % (AUTO) 0.2 % (0.0-5.0); LYMPHOCYTES # (AUTO) 1.8 K/uL (0.60-3.4); MEAN CORPUSCULAR HEMOGLOBIN 32.4 pg (27.0-31.0); MEAN CORPUSCULAR HGB CONC 35.1 (31.8-35.4); MEAN CORPUSCULAR VOLUME 92.2 fl (80.0-94.0); MONOCYTES # (AUTO) 0.4 K/uL (0.4-2.0); MONOCYTES % (AUTO) 8.5 (0-10); NEUTROPHILS # (AUTO) 2.2 K/ul (2.0-6.9); NEUTROPHILS % (AUTO) 48.4 % (42.2-75.2); PLATELET COUNT 194 10^3/uL (140-440); RDW COEFFICIENT OF VARIATION 12.9 % (11.6-14.8); RED BLOOD COUNT 3.61 10^6/ul (4.70-6.10); WHITE BLOOD COUNT 4.57 K/ul (4.2-10.2)
[2019-12-30] MEDS: PROTONIX PO SCH (06:01)
[2019-12-30] MEDS ORDERED: ATIVAN PO SCH (09:00)
[2019-12-30] MEDS: THIAMINE PO SCH (09:08)
[2019-12-30] MEDS: LEXAPRO PO SCH (09:09)
[2019-12-30] MEDS: NORVASC PO SCH (09:09)
--- NOTE | 2019-12-30 09:10 | CT ---
Exam: CT abdomen and pelvis with contrast Date: 12/30/2019 Comparison: CT abdomen pelvis 09/25/2015 History: Gastrointestinal bleeding. Marizol Velazquez syndrome. Pheochromocytoma. TECHNIQUE: Axial CT images through the abdomen and pelvis were obtained after the intravenous admini stration of 75 mL of Omnipaque-[id number] via the left hand IV.. MPR images obtained. FINDINGS: Severe diffuse fatty infiltration of the liver. Gallbladder is normal in caliber and with out pericholecystic fluid or fat stranding. Spleen, pancreas, adrenal glands, and both kidneys are n ormal. Negative appendix on axial image 74. No abnormal gastric wall thickening. No evidence of ga stric perforation or bowel perforation. No bowel obstruction. No abdominal aortic aneurysm. No mes enteric or retroperitoneal lymphadenopathy. No iliac chain lymphadenopathy. No inguinal lymphadenop athy. No bladder calculi are bladder wall thickening. No worrisome blastic or lytic osseous lesions in the abdomen or pelvis. Impression: 1. No evidence of gastric perforation or bowel perforation. 2. Severe diffuse fatty liver. 3. No CT evidence of gastritis or enterocolitis. 4. No evidence of bowel obstruction.
[2019-12-30] MEDS: ATIVAN PO PRN ×2 (09:15→22:52)
[2019-12-30] MEDS ORDERED: DILAUDID 0.5 MG/0.5 ML SYRINGE IVP STA ×2 (10:50→17:31)
[2019-12-30] MEDS ORDERED: DILAUDID 1 MG/ML SYRINGE IVP STA (10:57)
--- NOTE | 2019-12-30 12:54 | PCM ---
Chief Complaint Chief Complaint: Alcohol abuse and hypertension History of Present Illness History of Present Illness: Patient Complains Of Substance Abuse Of: Alcohol for many years. Has Increased Use Since he lost his job and going through divorce and admits to drinking daily stating he stopped yesterday morning. Is less Anxious Aggravating: Reports Recent stress States he has had Prior psych counseling; Denies Suicidal thoughts, Suicidal plan, Suicidal gestures, Homicidal thoughts, Homicidal plan, Homicidal gestures, Prior attempts, Prior psych admission, Prior abuse counseling and Prior abuse admission Denies Multi Drug Ingestion. Denies suicidal ideation and currently has logical thought process with good insight, intact memory and normal judgement Became hypertensive requiring IV Cardene and current pressure is stable and off the drip Review of Systems Constitutional: Denies No symptoms, Fever, Chills, Weakness, Sweats, Fatigue, Loss of appetite and Other Eyes: Denies No symptoms, Blurred vision, Double-vision, Discharge, Itching, Pain, Redness, Photophobia and Other Ears: Denies No symptoms, Pain, Bleeding, Drainage, Ringing, Hearing loss and Other Nose: Denies No symptoms, Bleeding, Congestion, Discharge and Other Throat: Denies No symptoms, Pain, Swelling, Voice change and Other Mouth: Denies No symptoms, Bleeding, Pain, Swelling and Other Respiratory: Denies No symptoms, Cough, Shortness of air, Wheeze, Hemoptysis, Pain with breathing and Other Cardiovascular: Denies No symptoms, Chest pain, Left arm pain, Diaphoresis, PND, Orthopnea, Edema, Palpitations, Syncope and Other Gastrointestinal: Denies No symptoms, Abdominal pain, Nausea, Vomiting, Diarrhea, Melena, Hematemesis, Hematochezia, Dysphagia, Constipation and Other Genitourinary: Denies No symptoms, dysuria, hematuria, frequency, incontinence, flank pain, penile discharge, testicular pain, testicular swelling and other Neurological: Denies No symptoms, Headache, Dizziness, Seizure, Numbness, Weakness, Speech difficulty, Problems with walking, Tremor, Fainting and Other Musculoskeletal: Denies No symptoms, Pain, Swelling in joints and Other Skin: Denies No symptoms, Rash, Pruritus, Lacerations, Wounds, Bruising and Other Immunology: Denies No symptoms, Hives, Itching, Frequent infections, Difficulty healing and Other Hematology: Denies No symptoms, Easy bruising, Easy bleeding, Swollen glands and Other Endocrine: Denies No symptoms, Weight changes, Cold intolerance, Heat intolerance, Excessive thirst, Excessive hunger, Polyuria and Other Psychiatric: Reports Depression and Anxiety Habits: Reports Substance use and Alcohol use Allergies Allergies Allergy/AdvReac Type Severity Reaction Status Date / Time No Known Allergies Allergy Unverified 12/29/19 15:45 [facility] Medical History Abdominal pain Alcohol abuse Alcoholic gastritis Hypertension Surgical History Esophageal reconection History of ear, nose, and throat (ENT) surgery Left Foot Reconstruction Right Knee Clean and Scraped Shoulder repair Social History Smoking and tobacco status: Never smoker Alcohol intake: current Alcohol intake frequency: 3 or more drinks per day Alcohol type: hard liquor Details: drinks 2 5ths of vodka a day Medications Medications: Medications Generic Name Dose Route Start Last Admin Trade Name Freq PRN Reason Stop Dose Admin Amlodipine Besylate 10 mg 12/30/19 09:00 12/30/19 09:09 Amlodipine Besylate 5 Mg Tablet PO 10 mg DAILY LEONARDO Administration Chlordiazepoxide HCl 10 mg 12/30/19 01:00 12/30/19 09:09 Chlordiazepoxide Hcl 10 Mg Capsule PO 10 mg TID LEONARDO Administration Escitalopram Oxalate 10 mg 12/30/19 09:00 12/30/19 09:09 Escitalopram Oxalate 10 Mg Tablet PO 10 mg DAILY LEONARDO Administration Sodium Chloride 1,000 mls @ 30 mls/hr 12/29/19 21:32 12/29/19 21:34 Sodium Chloride IV 12/31/19 06:51 30 mls/hr .[id number] STA Administration Potassium Chloride/Dextrose/Sod Cl 1,000 mls @ 75 mls/hr 12/29/19 23:00 12/30/19 00:11 D5%-Ns-Kcl 20 Meq/L Iv Priscila IV 75 mls/hr .[id number] LEONARDO Administration Lisinopril 40 mg 12/30/19 21:00 Lisinopril 40 Mg Tablet PO BEDTIME LEONARDO Lorazepam 1 mg 12/30/19 00:46 12/30/19 09:15 Lorazepam 1 Mg Tablet PO 1 mg TID PRN Administration Anxiety Ondansetron HCl 4 mg 12/29/19 22:59 Ondansetron Hcl 4 Mg Tab.Rapdis PO TID PRN nausea Pantoprazole Sodium 40 mg 12/30/19 06:30 12/30/19 06:01 Pantoprazole Sodium 40 Mg Tablet.Dr PO 40 mg QDAC LEONARDO Administration Sodium Chloride 1 syr 12/29/19 16:16 12/29/19 16:47 0.9% Sodium Chloride 10 Ml Disp.Syrin IVF 1 syr PRN PRN Administration To flush IV Thiamine HCl 100 mg 12/30/19 09:00 12/30/19 09:08 Vitamin B-1 100 Mg Tablet PO 100 mg DAILY LEONARDO Administration Tramadol HCl 50 mg 12/29/19 23:24 12/30/19 09:09 Tramadol Hcl 50 Mg Tablet PO 50 mg Q6H PRN Administration headache Body Composition Height: 5 ft 10 in Weight: 277 lb Body Mass Index (BMI): 39.7 Vital Signs Temperature: 98.1 F Pulse Rate: 79 Respiratory Rate: 16 Blood Pressure: 126/83 O2 Sat by Pulse Oximetry: 96 Physical Examination Appearance: Reports Well-appearing, Ill-appearing, No pain distress, Well- nourished, Obese, Thin, Cachectic and Other Ill-appearing: Mild Pain Distress: None Eyes: Reports HILDA, EOMI, Conjunctiva clear, Conjunctiva inflammed, Conjunctiva pale, Right pupil size, Left pupil size and Other Neck: Supple Respiratory: Reports Airway patent, Breath sounds clear, Breath sounds equal, Breath sounds diminished, Respirations nonlabored, Airway obstructed, Crackles, Rhonchi, Wheezes, Retractions and Other Cardiovascular: Reports RRR, Pulses normal, No rub, No murmur, Irregular rhythm, Tachycardia, Bradycardia, Abnormal pulses, Murmur and Other GI/: Reports Soft, Nontender, No masses, Bowel sounds normal, No Organomegaly, Tender, Mass, Bowel sounds hypoactive, Bowel sounds hyperactive, Hepatomegaly, Splenomegaly and Other Musculoskeletal: Reports Normal strength, ROM intact, No edema, No calf tenderness, Limited ROM, Limited strength, Edema, Calf tenderness and Other Skin: Reports Warm, Dry, Normal color, Pale, Diaphoretic, Cyanotic and Other Neurological: Reports Sensation intact, Motor intact, Reflexes intact, Cranial nerves intact, Alert, Oriented, Disoriented, Alert to verbal, Alert to pain, Unresponsive, Abnormal reflexes, Focal Deficit, CN Palsy and Other Psychiatric: Reports Affect appropriate, Mood appropriate, Anxious, Depressed and Other Lab/Tests/Diagnostic Imaging Lab/Tests/Diagnostic Imaging: Lab Review 12/29/19 12/29/19 12/29/19 16:00 16:30 16:30 WBC 8.06 RBC 4.18 L Hgb 13.8 L Hct 38.1 L MCV 91.1 MCH 33.0 H MCHC 36.2 H RDW Coeff of Suly 13.0 Plt Count 267 Immature Gran % (Auto) 0.2 Neut % (Auto) 87.6 H Lymph % (Auto) 7.1 L Carver % (Auto) 4.6 Eos % (Auto) 0.0 Baso % (Auto) 0.5 Neut # (Auto) 7.1 H Lymph # (Auto) 0.6 Carver # (Auto) 0.4 Eos # (Auto) 0.0 Baso # (Auto) 0.0 Immature Gran # (Auto) 0.0 PT 9.6 INR 0.98 APTT 22.4 L Sodium Potassium Chloride Carbon Dioxide Anion Gap BUN Creatinine Estimated GFR (MDRD) BUN/Creatinine Ratio Glucose Calcium Total Bilirubin AST ALT Alkaline Phosphatase Troponin I Total Protein Albumin Globulin Albumin/Globulin Ratio Plasma/Serum Alcohol Blood Type O POSITIVE Antibody Screen 12/29/19 12/29/19 12/30/19 16:30 16:30 05:00 WBC RBC Hgb Hct MCV MCH MCHC RDW Coeff of Suly Plt Count Immature Gran % (Auto) Neut % (Auto) Lymph % (Auto) Carver % (Auto) Eos % (Auto) Baso % (Auto) Neut # (Auto) Lymph # (Auto) Carver # (Auto) Eos # (Auto) Baso # (Auto) Immature Gran # (Auto) PT INR APTT Sodium 138.2 Potassium 4.02 Chloride 100.7 Carbon Dioxide 19.7 L Anion Gap 21.82 BUN 13.7 Creatinine 1.07 Estimated GFR (MDRD) 75.00 BUN/Creatinine Ratio 12.80 Glucose 104.0 Calcium 9.91 Total Bilirubin 1.46 H AST 80.5 H ALT 42.1 Alkaline Phosphatase 94.3 Troponin I < 0.012 Total Protein 8.12 Albumin 5.02 H Globulin 3.10 Albumin/Globulin Ratio 1.61 Plasma/Serum Alcohol < 10.0 Blood Type O POSITIVE Antibody Screen Negative 12/30/19 05:00 WBC 4.57 RBC 3.61 L Hgb 11.7 L Hct 33.3 L MCV 92.2 MCH 32.4 H MCHC 35.1 RDW Coeff of Suly 12.9 Plt Count 194 Immature Gran % (Auto) 0.2 Neut % (Auto) 48.4 Lymph % (Auto) 40.0 Carver % (Auto) 8.5 Eos % (Auto) 2.0 Baso % (Auto) 0.9 Neut # (Auto) 2.2 Lymph # (Auto) 1.8 Carver # (Auto) 0.4 Eos # (Auto) 0.1 Baso # (Auto) 0.0 Immature Gran # (Auto) 0.0 PT INR APTT Sodium Potassium Chloride Carbon Dioxide Anion Gap BUN Creatinine Estimated GFR (MDRD) BUN/Creatinine Ratio Glucose Calcium Total Bilirubin AST ALT Alkaline Phosphatase Troponin I Total Protein Albumin Globulin Albumin/Globulin Ratio Plasma/Serum Alcohol Blood Type Antibody Screen Orders Category Date Time Status PLACE PATIENT OBSERVATION .TO MEDSURG (MONITORED BED ADMISSION 12/29/19 23 :51 Active ) EKG-(ED ONLY) Stat CARDIO 12/29/19 19:18 Completed EKG-(IP & OP ONLY) DAILY CARDIO 12/30/19 06:00 Completed EKG-(IP & OP ONLY) DAILY CARDIO 12/31/19 06:00 Ordered ACTIVITY .BR with BRP CARE 12/29/19 22:55 Active CASE MANAGEMENT CONSULT 0600 CARE 12/29/19 22:56 Completed INTAKE & OUTPUT Q8HR CARE 12/29/19 22:56 Active NPO REMINDER: IMAGING ONCE CARE 12/30/19 06:50 Completed SEIZURE ASSESSMENT .PRN CARE 12/29/19 23:02 Active SEIZURE PRECAUTIONS .AT ALL TIMES CARE 12/29/19 23:02 Active TELEMETRY MONITORING TELE CARE 12/29/19 23:51 Active VITAL SIGNS Q4HR CARE 12/29/19 22:56 Active CARDIAC DIET DIETARY 12/29/19 Breakfast Ordered ED APPLY ICE AFFECTED AREA QID EMERGENCY 12/29/19 23:24 Active ED IT HELP DESK TECHNICIAN APPLIED .ONCE EMERGENCY 12/29/19 16:16 Active ED IV/MEDIPORT/POWERPORT .ONCE EMERGENCY 12/29/19 16:16 Active ED ORTHOSTATIC VITAL SIGNS .ONCE EMERGENCY 12/29/19 16:16 Active BLOOD ALCOHOL Stat LAB 12/29/19 16:30 Completed CBC W/ AUTO DIFF DAILY@0600 LAB 12/30/19 05:00 Completed CBC W/ AUTO DIFF DAILY@0600 LAB 12/31/19 06:00 Ordered CBC W/ AUTO DIFF Stat LAB 12/29/19 16:30 Completed COMPREHENSIVE METABOLIC PANEL Stat LAB 12/29/19 16:30 Completed METANEPHRINES, FRAC PL, FREE Stat LAB 12/30/19 06:59 Received METANEPHRINES, FRAC, QN U24 Stat LAB 12/30/19 Ordered OCCULT BLOOD, STOOL Stat LAB 12/30/19 06:39 Uncollected PARTIAL THROMBOPLASTIN TIME Stat LAB 12/29/19 16:30 Completed PT WITH INR Stat LAB 12/29/19 16:30 Completed TROPONIN I Q8H LAB 12/30/19 05:00 Completed TROPONIN I Q8H LAB 12/30/19 13:00 Ordered TYPE AND SCREEN Stat LAB 12/29/19 16:30 Completed 0.9 % Sodium Chloride [Saline Flush] MEDS 12/29/19 16:16 Active 1 syr IVF PRN PRN Acetaminophen [Tylenol] MEDS 12/29/19 19:19 Discontinued 1,000 mg PO ONCE STA Amlodipine Besylate [Norvasc] MEDS 12/30/19 09:00 Active 10 mg PO DAILY Chlordiazepoxide HCl [Librium] MEDS 12/30/19 01:00 Active 10 mg PO TID Clonidine HCl [Catapres] MEDS 12/29/19 19:19 Discontinued 0.1 mg PO ONCE STA Escitalopram Oxalate [Lexapro] MEDS 12/30/19 09:00 Active 10 mg PO DAILY Hydromorphone HCl [Dilaudid 1 mg/ml Syringe] MEDS 12/30/19 10:57 Discontinued 1 mg IVP ONCE STA Lisinopril [Zestril] MEDS 12/30/19 21:00 Active 40 mg PO BEDTIME Lorazepam Inj [Ativan] MEDS 12/29/19 17:29 Discontinued 1 mg IVP ONCE STA Lorazepam [Ativan] MEDS 12/29/19 21:20 Discontinued 1 mg PO ONCE STA Lorazepam [Ativan] MEDS 12/30/19 09:00 Discontinued 1 mg PO TID Lorazepam [Ativan] MEDS 12/30/19 00:46 Active 1 mg PO TID PRN Metoprolol Tartrate [Lopressor] MEDS 12/29/19 17:29 Discontinued 5 mg IVP ONCE STA Metoprolol Tartrate [Lopressor] MEDS 12/29/19 19:18 Discontinued 5 mg IVP ONCE STA Nicardipine in NaCl, Iso-Osm [Cardene 20 mg/200 ml NaCl MEDS 12/29/19 21:29 Discontinued ] 20 mg in 200 ml IV .STK-MED Nicardipine in NaCl, Iso-Osm [Cardene 20 mg/200 ml NaCl MEDS 12/29/19 21:30 Discontinued ] 20 mg in 200 ml IV TITRATE Ondansetron HCl/Pf [Zofran 4 mg/2 ml] MEDS 12/29/19 16:16 Discontinued 4 mg IVP ONCE STA Ondansetron [Zofran Odt] MEDS 12/29/19 22:59 Active 4 mg PO TID PRN Pantoprazole Sodium [Protonix IV] MEDS 12/29/19 16:16 Discontinued 40 mg IVP ONCE STA Pantoprazole Sodium [Protonix] MEDS 12/30/19 06:30 Active 40 mg PO QDAC Potassium Chloride/D5-0.9%NaCl [D5%-Ns-KCl 20 Meq/l IV MEDS 12/29/19 23:00 Active Priscila] 1,000 ml IV 75 mls/hr Sodium Chloride 0.9% [Sodium Chloride] 1,000 ml MEDS 12/29/19 21:32 Active IV 30 mls/hr Sodium Chloride 0.9% [Sodium Chloride] 1,000 ml MEDS 12/29/19 16:16 Dis continued IV BOLUS Sodium Chloride 0.9% [Sodium Chloride] 1,000 ml MEDS 12/29/19 19:18 Discontinued IV BOLUS Tramadol HCl [Ultram] MEDS 12/29/19 23:24 Active 50 mg PO Q6H PRN Vitamin B-1 [Thiamine] MEDS 12/30/19 09:00 Active 100 mg PO DAILY RESUSCITATION STATUS Routine OTHERS 12/29/19 22:55 Ordered CHEST, 2 VIEWS PA & LAT Stat RADS 12/29/19 16:[address] ABDOMEN/PELVIS W CONTRAST Stat RADS 12/30/19 06:50 Completed Medications Generic Name Dose Route Start Last Admin Trade Name Freq PRN Reason Stop Dose Admin Amlodipine Besylate 10 mg 12/30/19 09:00 12/30/19 09:09 Amlodipine Besylate 5 Mg Tablet PO 10 mg DAILY LEONARDO Administration Chlordiazepoxide HCl 10 mg 12/30/19 01:00 12/30/19 09:09 Chlordiazepoxide Hcl 10 Mg Capsule PO 10 mg TID LEONARDO Administration Escitalopram Oxalate 10 mg 12/30/19 09:00 12/30/19 09:09 Escitalopram Oxalate 10 Mg Tablet PO 10 mg DAILY LEONARDO Administration Sodium Chloride 1,000 mls @ 30 mls/hr 12/29/19 21:32 12/29/19 21:34 Sodium Chloride IV 12/31/19 06:51 30 mls/hr .[id number] STA Administration Potassium Chloride/Dextrose/Sod Cl 1,000 mls @ 75 mls/hr 12/29/19 23:00 12/30/19 00:11 D5%-Ns-Kcl 20 Meq/L Iv Priscila IV 75 mls/hr .[id number] LEONARDO Administration Lisinopril 40 mg 12/30/19 21:00 Lisinopril 40 Mg Tablet PO BEDTIME LEONARDO Lorazepam 1 mg 12/30/19 00:46 12/30/19 09:15 Lorazepam 1 Mg Tablet PO 1 mg TID PRN Administration Anxiety Ondansetron HCl 4 mg 12/29/19 22:59 Ondansetron Hcl 4 Mg Tab.Rapdis PO TID PRN nausea Pantoprazole Sodium 40 mg 12/30/19 06:30 12/30/19 06:01 Pantoprazole Sodium 40 Mg Tablet.Dr PO 40 mg QDAC LEONARDO Administration Sodium Chloride 1 syr 12/29/19 16:16 12/29/19 16:47 0.9% Sodium Chloride 10 Ml Disp.Syrin IVF 1 syr PRN PRN Administration To flush IV Thiamine HCl 100 mg 12/30/19 09:00 12/30/19 09:08 Vitamin B-1 100 Mg Tablet PO 100 mg DAILY LEONARDO Administration Tramadol HCl 50 mg 12/29/19 23:24 12/30/19 09:09 Tramadol Hcl 50 Mg Tablet PO 50 mg Q6H PRN Administration headache Discontinued Medications Generic Name Dose Route Start Last Admin Trade Name Sascha PRN Reason Stop Dose Admin Acetaminophen 1,000 mg 12/29/19 19:19 12/29/19 20:12 Acetaminophen 500 Mg Tablet PO 12/29/19 19:20 1,000 mg ONCE STA Administration Clonidine 0.1 mg 12/29/19 19:19 12/29/19 20:13 Clonidine Hcl 0.1 Mg Tablet PO 12/29/19 19:20 0.1 mg ONCE STA Administration Hydromorphone HCl 1 mg 12/30/19 10:57 12/30/19 11:36 Hydromorphone Hcl 1 Mg/Ml Syringe IVP 12/30/19 10:58 1 mg ONCE STA Administration Sodium Chloride 1,000 mls @ 1,000 mls/hr 12/29/19 16:16 12/29/19 16:46 Sodium Chloride IV 12/29/19 17:15 1,000 mls/hr BOLUS STA Administration Sodium Chloride 1,000 mls @ 1,000 mls/hr 12/29/19 19:18 12/29/19 20:12 Sodium Chloride IV 12/29/19 20:17 1,000 mls/hr BOLUS STA Administration Nicardipine/Sodium Chloride 20 mg in 200 mls @ 50 mls/hr 12/29/19 21:30 12/29/19 21:45 Cardene 20 Mg/200 Ml Nacl IV 5.5 mg/hr TITRATE LEONARDO 55 mls/hr Titration Protocol 5 MG/HR Lorazepam 1 mg 12/29/19 17:29 12/29/19 17:58 Lorazepam Inj 2 Mg/Ml Disp.Syringe IVP 12/29/19 17:30 1 mg ONCE STA Administration Lorazepam 1 mg 12/29/19 21:20 12/29/19 21:31 Lorazepam 1 Mg Tablet PO 12/29/19 21:21 1 mg ONCE STA Administration Lorazepam 1 mg 12/30/19 09:00 Lorazepam 1 Mg Tablet PO TID LEONARDO Metoprolol Tartrate 5 mg 12/29/19 17:29 12/29/19 17:59 Metoprolol Tartrate 5 Mg/5 Ml Vial IVP 12/29/19 17:30 5 mg ONCE STA Administration Metoprolol Tartrate 5 mg 12/29/19 19:18 12/29/19 20:14 Metoprolol Tartrate 5 Mg/5 Ml Vial IVP 12/29/19 19:19 5 mg ONCE STA Administration Ondansetron HCl 4 mg 12/29/19 16:16 12/29/19 16:46 Ondansetron Hcl/Pf 4 Mg/2 Ml Sdv IVP 12/29/19 16:17 4 mg ONCE STA Administration Pantoprazole Sodium 40 mg 12/29/19 16:16 12/29/19 16:46 Pantoprazole Sodium 40 Mg Vial IVP 12/29/19 16:17 40 mg ONCE STA Administration Assessment (1) Alcoholism, chronic: Status: Acute Code(s): F10.20 - Alcohol dependence, uncomplicated SNOMED Code(s): 5942022 (2) Uncontrolled hypertension: Status: Acute Code(s): I10 - Essential (primary) hypertension SNOMED Code(s): 73276096 Assessment: 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
[2019-12-30] MEDS: ZESTRIL PO SCH (20:12)
[2019-12-31] MEDS: D5%-NS-KCL 20 MEQ/L IV SOL 1,000 ML IV SCH ×3 (03:17→16:27)
[2019-12-31 05:21] LABS: BASOPHILS % (AUTO) 1.1 % (0.0-3.0); EOSINOPHILS # (AUTO) 0.1 K/ul (0.0-0.7); EOSINOPHILS % (AUTO) 3.4 % (0.0-7.0); HEMATOCRIT 36.2 % (42.0-52.0); HEMOGLOBIN 12.7 g/dl (14.0-18.0); LYMPHOCYTES # (AUTO) 1.5 K/uL (0.60-3.4); LYMPHOCYTES % (AUTO) 40.6 (10.0-50.0); MEAN CORPUSCULAR HEMOGLOBIN 32.8 pg (27.0-31.0); MEAN CORPUSCULAR HGB CONC 35.1 (31.8-35.4); MEAN CORPUSCULAR VOLUME 93.5 fl (80.0-94.0); MONOCYTES # (AUTO) 0.3 K/uL (0.4-2.0); MONOCYTES % (AUTO) 8.7 (0-10); NEUTROPHILS # (AUTO) 1.8 K/ul (2.0-6.9); NEUTROPHILS % (AUTO) 46.2 % (42.2-75.2); PLATELET COUNT 206 10^3/uL (140-440); RDW COEFFICIENT OF VARIATION 12.8 % (11.6-14.8); RED BLOOD COUNT 3.87 10^6/ul (4.70-6.10); WHITE BLOOD COUNT 3.79 K/ul (4.2-10.2)
[2019-12-31] MEDS: PROTONIX PO SCH (06:19)
[2019-12-31] MEDS: LEXAPRO PO SCH (09:15)
[2019-12-31] MEDS: NORVASC PO SCH (09:15)
[2019-12-31] MEDS: THIAMINE PO SCH (09:15)
[2019-12-31] MEDS: LIBRIUM PO SCH ×3 (09:15→20:16)
[2019-12-31] MEDS: ATIVAN PO PRN ×2 (11:09→20:15)
[2019-12-31 15:29] LABS: OCCULT BLOOD SAMPLE 1 NEGATIVE (NEGATIVE)
--- NOTE | 2019-12-31 16:40 | PCM.PROG ---
Inpatient progress note: S: " I feel better today. Still a little nauseated but rene more vomiting." O: Vitals: 10:00 am 133/92 P 69 R 18 Temp 98 02 sat 98% Room air HEENT: ATNC, EOMI, PERRLA Neck supple Pharynx clear Chest Clear to A/P Abd: mild epigatrice tenderness, no rebound or guarding, BS + but hypoactive Ext No CCERP Neuro: mild intention tremor, no asterixis, no clonus or spasticity Labs: Urine pending, WBC 3.79 H/H 12.7/36.2 Assess: 1: ETOH gastritis: No more hematemesis and tolerating ice chips. Will advance to clear liquids and observe.H/H stable 2: Pheochromocytoma workup: BP stable, awaiting urine tests 3: ETOH withdrawal: mild tremor, no asterixis or seizure activity. Plan: Advance diet to clear liquids, recheck labs in am. Anticipate discharge in 24-48 hours if workup negative and he continues to improve.
[2019-12-31] MEDS: ZESTRIL PO SCH (20:16)
[2020-01-01 00:01] LABS: OCCULT BLOOD SAMPLE 2 NO SPECIMEN RECEIVED (NEGATIVE); OCCULT BLOOD SAMPLE 3 NO SPECIMEN RECEIVED (NEGATIVE)
[2020-01-01 04:25] LABS: BASOPHILS % (AUTO) 0.5 % (0.0-3.0); EOSINOPHILS # (AUTO) 0.1 K/ul (0.0-0.7); EOSINOPHILS % (AUTO) 2.9 % (0.0-7.0); HEMATOCRIT 35.5 % (42.0-52.0); HEMOGLOBIN 12.6 g/dl (14.0-18.0); IMMATURE GRANULOCYTE % (AUTO) 0.3 % (0.0-5.0); LYMPHOCYTES # (AUTO) 1.6 K/uL (0.60-3.4); LYMPHOCYTES % (AUTO) 41.4 (10.0-50.0); MEAN CORPUSCULAR HEMOGLOBIN 33.2 pg (27.0-31.0); MEAN CORPUSCULAR HGB CONC 35.5 (31.8-35.4); MEAN CORPUSCULAR VOLUME 93.4 fl (80.0-94.0); MONOCYTES # (AUTO) 0.3 K/uL (0.4-2.0); MONOCYTES % (AUTO) 8.2 (0-10); NEUTROPHILS # (AUTO) 1.8 K/ul (2.0-6.9); NEUTROPHILS % (AUTO) 46.7 % (42.2-75.2); PLATELET COUNT 209 10^3/uL (140-440); RDW COEFFICIENT OF VARIATION 12.6 % (11.6-14.8); WHITE BLOOD COUNT 3.79 K/ul (4.2-10.2)
[2020-01-01 04:36] LABS: ALANINE AMINOTRANSFERASE 31.8 U/L (0-50); ALBUMIN 3.94 g/dL (3.5-5.0); ALKALINE PHOSPHATASE 59.3 U/L (38-126); ASPARTATE AMINO TRANSFERASE 55.3 U/L (17-59); BILIRUBIN,TOTAL 0.99 mg/dL (0.2-1.3); BLOOD UREA NITROGEN 2.5 mg/dL (9-20); CALCIUM 8.9 mg/dL (8.4-10.2); CARBON DIOXIDE 27.4 mmol/L (22-30.0); CHLORIDE 105.1 mmol/L (98-107); CREATININE 0.75 mg/dL (0.60-1.10); GLUCOSE 104.8 mg/dL (74-106); POTASSIUM 3.3 mmol/L (3.5-5.1); SODIUM 136.8 mmol/L (134.5-145); TOTAL PROTEIN 6.65 g/dL (6.3-8.2)
[2020-01-01] MEDS: D5%-NS-KCL 20 MEQ/L IV SOL 1,000 ML IV SCH (05:33)
[2020-01-01] MEDS: PROTONIX PO SCH (05:53)
--- NOTE | 2020-01-01 08:11 | PCM.PROG ---
ED Physician Hospitalist Daily Note S: "I feel pretty good today", denies n/v/d, hematemesis. Tolerating clears well, states he feels hungry. O: Vitals: BP 130/89, P 70, R 19 Temp: 97.3, 02 sat 99% RA Exam: wdwn wm alert cooperative HEENT: No nystagmus, pharynx clear Chest Clear to A/P Cor: RRR without m/r/g Abd: mild epigastric tenderness, no rebound or guarding. ext no CCERP Neuro: Tremor improved, still present with intention. No asterixis Lab: CBC WBC 3.79, H/H 12.6/35.5, K+ 3.3 Assess: 1. ETOH Gastritis: Resolving, tolerating clear liquids. Will advance to full diet today 2. Pheochromocytoma: Awaiting labs, anticipate them back today. 3. ETOH withdrawal: Vital stable, tremor improved. Will check amylase,lipase and Mag today. Whitley: If tolerates po and labs OK later today, anticipate discharge this pm.
[2020-01-01] MEDS ORDERED: K-DUR PO STA (08:16)
[2020-01-01 08:17] LABS: ALANINE AMINOTRANSFERASE 35.9 U/L (0-50); ALBUMIN 4.11 g/dL (3.5-5.0); ALKALINE PHOSPHATASE 62.9 U/L (38-126); AMYLASE 64.4 U/L (30-110); ASPARTATE AMINO TRANSFERASE 60.3 U/L (17-59); BILIRUBIN,TOTAL 1.05 mg/dL (0.2-1.3); BLOOD UREA NITROGEN 2.5 mg/dL (9-20); CALCIUM 9.17 mg/dL (8.4-10.2); CARBON DIOXIDE 27.7 mmol/L (22-30.0); CHLORIDE 103.8 mmol/L (98-107); CREATININE 0.78 mg/dL (0.60-1.10); GLUCOSE 105.1 mg/dL (74-106); MAGNESIUM 1.79 mg/dL (1.6-2.3); POTASSIUM 3.55 mmol/L (3.5-5.1); SODIUM 136.2 mmol/L (134.5-145); TOTAL PROTEIN 7.03 g/dL (6.3-8.2)
[2020-01-01] MEDS: THIAMINE PO SCH (09:22)
[2020-01-01] MEDS: NORVASC PO SCH (09:23)
[2020-01-01] MEDS: LEXAPRO PO SCH (09:23)
[2020-01-01] MEDS: LIBRIUM PO SCH ×2 (09:23→15:55)
[2020-01-01 13:23] VITALS: BP 133/87; TEMP 99.3
[2020-01-01] MEDS: ATIVAN PO PRN (13:42)
--- NOTE | 2020-01-01 17:07 | PCM.DC ---
Final Diagnosis: Acute Upper Gatrointestinal hemorrhage Acute Alcohol withdrawal (1) Alcoholism, chronic: Status: Acute Code(s): F10.20 - Alcohol dependence, uncomplicated SNOMED Code(s): 8672833 (2) Uncontrolled hypertension: Status: Acute Code(s): I10 - Essential (primary) hypertension SNOMED Code(s): 32104925 Medications at Discharge: Ambulatory Orders Medication Instructions Recorded lisinopril 40 mg PO BEDTIME 09/26/17 amlodipine 10 mg PO DAILY 12/27/19 escitalopram oxalate [Lexapro] 10 mg PO DAILY 12/27/19
--- NOTE | 2020-01-01 17:09 | PCM.PROG ---
Inpatient Emergency Physicican/Hospitalist Note Re-exam 1700. Patient tolerating po well without difficulty. Clinically markedly improved and labs reflect this. Anxious to enroll in outpatient detox/rehab program in [place]. Medically cleared for discharge.
[2020-01-07 18:15] LABS: METANEPHRINE, PL 22.8 pg/mL (0.0-88.0); NORMETANEPHRINE, PL 39.5 pg/mL (0.0-125.8)
[2020-01-08 17:12] LABS: METANEPHRINE, UR 58 ug/L (Undefined); NORMETANEPHRINE, UR 100 ug/L (Undefined)
== END 2020-01-01 17:52 ==
LOC: MEDSURG A 15:36 → ED 15:36 → MEDSURG A 23:59
PROVIDERS: ADMIT Emergency Medicine; ATTEND Emergency Medicine
DX: R11.2 Nausea with vomiting, unspecified